=== PATIENT | female | born 1965 | race Caucasian/White ===

== ENCOUNTER 2016-11-23 19:46 | Inpatient (IN) | payer MEDICAID ==
[2016-11-23] MEDS ORDERED: HALOPERIDOL LACT 5 MG/ML INJ IVP ONE ×3 (19:55→21:13)
[2016-11-23] MEDS ORDERED: NS 1,000 ML IV ONE ×2 (20:04→20:23)
[2016-11-23] MEDS ORDERED: FAMOTIDINE 20 MG in NS 100 ML IV ONE (20:06)
[2016-11-23 20:10] LABS: % IMMATURE GRANULYOCYTES 0.6 % (0.0-1.1); ADD DIFF? NO; ADD MORPH? NO; ADD SCAN? YES; ATYPICAL LYMPHOCYTE FLAG 10 (0-99); FRAGMENT RBC FLAG 0 (0-99); HEMATOCRIT 43.6 % (38.0-47.0); HEMOGLOBIN 14.4 g/dL (12.6-16.3); LEFT SHIFT FLG 0 (0-99); LIPEMIA HEMOLYSIS FLAG 80 (0-99); MEAN CELL HEMOGLOBIN 28.5 pg (27.9-34.1); MEAN CELL VOLUME 86.3 fL (81.5-99.8); MEAN PLATELET VOLUME 10.9 fL (8.7-11.7); PLATELET CLUMPS FLAG 0 (0-99); PLATELET COUNT 569 10^3/uL (150-400); RED BLOOD CELL COUNT 5.05 10^6/uL (4.18-5.33); RED CELL DISTRIBUTION WIDTH 15.8 % (11.5-15.2)
[2016-11-23 20:17] LABS: ALANINE AMINOTRANSFERASE 30 IU/L (9-52); ALBUMIN 4.7 g/dL (3.5-5.0); ALKALINE PHOSPHATASE 198 IU/L (38-126); ANION GAP 26 mEq/L (8-16); ASPARTATE AMINOTRANSFERASE 40 IU/L (14-46); BILIRUBIN,TOTAL 0.7 mg/dL (0.1-1.4); BILIRUBIN-CONJUGATED 0.3 mg/dL (0.0-0.5); BILIRUBIN-UNCONJUGATED 0.4 mg/dL (0.0-1.1); CARBON DIOXIDE 17 mEq/l (22-31); CHLORIDE 108 mEq/L (97-110); CREATININE 0.7 mg/dL (0.6-1.0); GLOMERULAR FILTRATION RATE > 60; GLUCOSE 167 mg/dL (70-100); POTASSIUM 3.6 mEq/L (3.5-5.2); SODIUM 151 mEq/L (134-144); TOTAL PROTEIN 8.7 g/dL (6.3-8.2)
[2016-11-23 20:34] LABS: SCAN NEGATIVE
--- NOTE | 2016-11-23 20:35 | CPEKG ---
Heart Rate: 70 RR Interval: 857 P-R Interval: 101 QRSD Interval: 90 QT Interval: 456 QTC Interval: 493 P [place]: 53 QRS [place]: 82 T Wave [place]: 20 EKG Severity - BORDERLINE ECG - EKG Impression: SINUS RHYTHM EKG Impression: SHORT TX INTERVAL, ACCELERATED AV CONDUCTION EKG Impression: BORDERLINE PROLONGED QT INTERVAL Electronically Signed By: Lachelle Costello 23-Nov-2016 22:43:26
--- NOTE | 2016-11-23 21:02 | EDPHY ---
H & P Stated Complaint: abd pain and vomiting all day Time Seen by Provider: 11/23/16 20:03 HPI/ROS: CHIEF COMPLAINT: Vomiting and epigastric pain History by patient and her daughter HISTORY OF PRESENT ILLNESS: 51-year-old woman with a history of hypertension and gastritis or ulcer presents complaining of severe epigastric pain, nausea and vomiting since she ran out of her medications that include clonidine, paroxetine, Pepcid and a statin. Patient states that every time she runs out of her medications this happens to her. She denies taking any benzodiazepines or opiates. She relates it to being out of her clonidine and her Pepcid. She said that she did get her medications in the mail today however not in time and she was already having the nausea and vomiting and could not keep anything down. It is associated with some diarrhea as well. Patient also complains of having hard time breathing. She is also concerned she might have a urinary tract infection as she has been having some dysuria, urgency and frequency. Patient is a somewhat difficult historian as she will not directly answer many questions. Her daughter notes that similar event happened to her in [place] where she has been living for the past few years. She denies any alcohol use but admits to using marijuana regularly. REVIEW OF SYSTEMS: As in HPI, and all other systems reviewed and are negative Source: Patient - Personal History Tetanus Vaccine Date: WITHIN 10 YRS - Medical/Surgical History Hx Asthma: No Hx Chronic Respiratory Disease: No Hx Diabetes: No Hx Cardiac Disease: No Hx Renal Disease: No Hx Cirrhosis: No Hx Alcoholism: No Hx HIV/AIDS: No Hx Splenectomy or Spleen Trauma: No Other PMH: ARTHRITIS, Psoriasis, tubes tied,anxiety/depression,torn esophagus with laser treatment,AR, cholesterol - Family History Significant Family History: No pertinent family hx - Social History Smoking Status: Light smoker - Physical Exam Exam: General Appearance: Alert, anxious, agitated, hyperventilating. Eyes: Pupils equal and round no pallor or injection. ENT, Mouth: Mucous membranes moist. Respiratory: Normal, effort, There are no retractions, lungs are clear to auscultation. Cardiovascular: Regular rate and rhythm. Gastrointestinal: Abdomen is soft and nontender, no masses, bowel sounds normal. No rebound or guarding. Back: No CVA tenderness Neurological: Awake, alert and oriented x 3, no pronator drift, normal gait, no pronator drift Skin: Warm and dry, positive psoriasis rash. Musculoskeletal: Neck is supple nontender. Extremities: symmetrical, full range of motion. No edema, DP pulses 2+ and equal bilaterally Constitutional: Initial Vital Signs Temperature (C) 36.4 C 11/23/16 19:50 Heart Rate 77 11/23/16 19:50 Respiratory Rate 18 11/23/16 19:50 Blood Pressure 204/71 H 11/23/16 19:50 O2 Sat (%) 96 11/23/16 19:50 O2 Delivery Mode Room Air Allergies/Adverse Reactions: aspirin Allergy (Verified 11/23/16 19:54) Home Medications: Medication Instructions Recorded Omeprazole 40 mg PO DAILY #10 capsule. 09/30/14 Cholesterol Med 11/23/16 Clonidine 11/23/16 Depression Med 11/23/16 Htn Med 11/23/16 Medical Decision Making - Diagnostics EKG Interpretation: Normal sinus rhythm at a rate of 70 with normal axis and short [place] interval and borderline QT interval, no ST segment abnormality or evidence of acute ischemia. There is no old EKG available for comparison. Imaging Results: Imaging Impressions Chest X-Ray 11/23/16 20:24 Impression: No evidence of acute cardiopulmonary abnormality. Imaging: I viewed and interpreted images myself ED Course/Re-evaluation: 51-year-old woman presents with nausea, vomiting, epigastric pain and is anxious , agitated and her retching in the emergency department. Patient was given IV fluids, IV Haldol and Pepcid with some improvement although she continued to complain of abdominal pain continued to be quite agitated and retch. She was therefore given a 2nd dose IV Haldol with further improvement but she continued to complain of abdominal pain and began retching again. Labs were remarkable for very elevated white blood cell count which I suspect is due to the patient's violent retching. There is no evidence of anemia. Her sodium was high and she has an elevated anion gap suggestive of volume depletion and consistent with her history of vomiting and diarrhea. Chest x- ray showed no evidence of free air in the diaphragm, pneumonia or other acute pathology. She was given a 2nd L of IV saline and again had some improvement but continued to get agitated and retch and was given a 3rd dose of iv haldol. Before the 2nd L of normal saline was finished the patient had urinated twice suggesting that she was getting adequately rehydrated. Urinalysis was concerning for urinary tract infection. Given her extremely elevated white blood cell count and metabolic derangements lactate was checked and blood cultures x2 were obtained. Patient was started on IV ceftriaxone. Blood cultures and lactate were not done on presentation as the patient was not febrile and initially not complaining of urinary symptoms. Clinically, the patient was feeling much better, however her lactate was elevated in light of UTI suggesting sepsis. Patient has remained hemodynamically stable throughout her emergency department stay. After the 3rd dose of Haldol the patient was tolerating oral fluids and was given a GI cocktail with improvement in her abdominal pain. Blood pressure remained elevated and given the fact that the patient associates her symptoms with being off of her clonidine, once she was tolerating oral fluids she was given a dose of oral clonidine. I discussed the patient with Dr. Young, the hospitalist on-call and the patient will be transferred to [facility] for ongoing eval and treatment. - Data Points Laboratory Results: Laboratory Results 11/23/16 20:05 11/23/16 20:05 11/23/16 11/23/16 11/23/16 22:22 21:35 20:05 WBC RBC Hgb Hct MCV MCH MCHC RDW Plt Count MPV Neut % (Auto) Lymph % (Auto) [place] % (Auto) Eos % (Auto) Baso % (Auto) Nucleat RBC Rel Count Absolute Neuts (auto) Absolute Lymphs (auto) Absolute Monos (auto) Absolute Eos (auto) Absolute Basos (auto) Absolute Nucleated RBC Immature Gran % Immature Gran # Smear Review By VBG Lactic Acid 3.0 mmol/L H mmol/L (0.7-2.1) Sodium 151 mEq/L H mEq/L (134-144) Potassium 3.6 mEq/L mEq/L (3.5-5.2) Chloride 108 mEq/L mEq/L (97-110) Carbon Dioxide 17 mEq/l L mEq/l (22-31) Anion Gap 26 mEq/L H mEq/L (8-16) BUN 11 mg/dL mg/dL (7-23) Creatinine 0.7 mg/dL mg/dL (0.6-1.0) Estimated GFR > 60 Glucose 167 mg/dL H mg/dL (70-100) Calcium 10.0 mg/dL mg/dL (8.5-10.4) Magnesium Total Bilirubin 0.7 mg/dL mg/dL (0.1-1.4) Conjugated Bilirubin 0.3 mg/dL mg/dL (0.0-0.5) Unconjugated Bilirubin 0.4 mg/dL mg/dL (0.0-1.1) AST 40 IU/L IU/L (14-46) ALT 30 IU/L IU/L (9-52) Alkaline Phosphatase 198 IU/L H IU/L (38-126) Total Protein 8.7 g/dL H g/dL (6.3-8.2) Albumin 4.7 g/dL g/dL (3.5-5.0) Lipase 140.0 IU/L IU/L (23-300) Urine Color YELLOW Urine Appearance CLOUDY Urine pH 6.0 (5.0-7.5) Ur Specific [place] 1.020 (1.002-1.030) Urine Protein NEGATIVE (NEGATIVE) Urine Ketones 1+ H (NEGATIVE) Urine Blood TRACE H (NEGATIVE) Urine Nitrate POSITIVE H (NEGATIVE) Urine Bilirubin NEGATIVE (NEGATIVE) Urine Urobilinogen 0.2 EU EU (0.2-1.0) Ur Leukocyte Esterase 1+ H (NEGATIVE) Urine RBC 3-5 /hpf H /hpf (0-3) Urine WBC >182 /hpf H /hpf (0-3) Ur Epithelial Cells 1+ /lpf /lpf (NONE-1+) Urine Bacteria 4+ /hpf H /hpf (NONE SEEN) Hyaline Casts 1-3 /lpf H /lpf (0-1) Urine Mucus 1+ /lpf /lpf (NONE-1+) Urine Glucose NEGATIVE (NEGATIVE) Urine Opiates Screen NEGATIVE (NEGATIVE) Urine Barbiturates NEGATIVE (NEGATIVE) Ur Phencyclidine Scrn NEGATIVE (NEGATIVE) Ur Amphetamine Screen NEGATIVE (NEGATIVE) U Benzodiazepines Scrn NON-NEGATIVE H (NEGATIVE) Urine Cocaine Screen NEGATIVE (NEGATIVE) U Marijuana (THC) Screen NON-NEGATIVE H (NEGATIVE) 11/23/16 11/23/16 20:05 20:00 WBC 31.41 10^3/uL H 10^3/uL (3.80-9.50) RBC 5.05 10^6/uL 10^6/uL (4.18-5.33) Hgb 14.4 g/dL g/dL (12.6-16.3) Hct 43.6 % % (38.0-47.0) MCV 86.3 fL fL (81.5-99.8) MCH 28.5 pg pg (27.9-34.1) MCHC 33.0 g/dL g/dL (32.4-36.7) RDW 15.8 % H % (11.5-15.2) Plt Count 569 10^3/uL H 10^3/uL (150-400) MPV 10.9 fL fL (8.7-11.7) Neut % (Auto) 87.9 % H % (39.3-74.2) Lymph % (Auto) 7.2 % L % (15.0-45.0) [place] % (Auto) 3.9 % L % (4.5-13.0) Eos % (Auto) 0.0 % L % (0.6-7.6) Baso % (Auto) 0.4 % % (0.3-1.7) Nucleat RBC Rel Count 0.0 % % (0.0-0.2) Absolute Neuts (auto) 27.58 10^3/uL H 10^3/uL (1.70-6.50) Absolute Lymphs (auto) 2.25 10^3/uL 10^3/uL (1.00-3.00) Absolute Monos (auto) 1.23 10^3/uL H 10^3/uL (0.30-0.80) Absolute Eos (auto) 0.01 10^3/uL L 10^3/uL (0.03-0.40) Absolute Basos (auto) 0.14 10^3/uL H 10^3/uL (0.02-0.10) Absolute Nucleated RBC 0.00 10^3/uL 10^3/uL (0-0.01) Immature Gran % 0.6 % % (0.0-1.1) Immature Gran # 0.20 10^3/uL H 10^3/uL (0.00-0.10) Smear Review By Pending VBG Lactic Acid Sodium Potassium Chloride Carbon Dioxide Anion Gap BUN Creatinine Estimated GFR Glucose Calcium Magnesium 1.9 mg/dL mg/dL (1.6-2.3) Total Bilirubin Conjugated Bilirubin Unconjugated Bilirubin AST ALT Alkaline Phosphatase Total Protein Albumin Lipase Urine Color Urine Appearance Urine pH Ur Specific [place] Urine Protein Urine Ketones Urine Blood Urine Nitrate Urine Bilirubin Urine Urobilinogen Ur Leukocyte Esterase Urine RBC Urine WBC Ur Epithelial Cells Urine Bacteria Hyaline Casts Urine Mucus Urine Glucose Urine Opiates Screen Urine Barbiturates Ur Phencyclidine Scrn Ur Amphetamine Screen U Benzodiazepines Scrn Urine Cocaine Screen U Marijuana (THC) Screen Medications Given: Discontinued Medications Al Hydroxide/Mg Hydroxide (Maalox Susp) 30 ml PO EDNOW ONE Stop: 11/23/16 21:54 Last Admin: 11/23/16 22:00 Dose: 30 ml Haloperidol Lactate (Haldol Injection) 2.5 mg IVP EDNOW ONE Stop: 11/23/16 19:56 Last Admin: 11/23/16 20:00 Dose: 2.5 mg Haloperidol Lactate (Haldol Injection) 2.5 mg IVP EDNOW ONE Stop: 11/23/16 20:37 Last Admin: 11/23/16 20:40 Dose: 2.5 mg Haloperidol Lactate (Haldol Injection) 2.5 mg IVP EDNOW ONE Stop: 11/23/16 21:14 Last Admin: 11/23/16 21:14 Dose: 2.5 mg Hyoscyamine Sulfate (Levsin, Hyomax-Sl) 0.125 mg PO EDNOW ONE Stop: 11/23/16 21:51 Last Admin: 11/23/16 21:56 Dose: 0.125 mg Sodium Chloride (Ns) 1,000 mls @ 0 mls/hr IV ONCE ONE; Wide Open PRN Reason: Protocol Stop: 11/23/16 20:05 Last Admin: 11/23/16 19:56 Dose: 1,000 mls Famotidine 20 mg/ Sodium (Chloride) 102 mls @ 408 mls/hr IV EDNOW ONE Stop: 11/23/16 20:20 Last Admin: 11/23/16 20:26 Dose: 102 mls Sodium Chloride (Ns) 1,000 mls @ 0 mls/hr IV ONCE ONE; Wide Open PRN Reason: Protocol Stop: 11/23/16 20:24 Last Admin: 11/23/16 21:08 Dose: 1,000 mls Lidocaine (Lidocaine 2% Viscous) 30 ml PO EDNOW ONE Stop: 11/23/16 21:53 Last Admin: 11/23/16 22:00 Dose: 30 ml Departure - Departure Disposition: [facility] Clinical Impression: Acute pyelonephritis, Hypernatremia, Vomiting and diarrhea Sepsis Qualifiers: Sepsis type: sepsis due to unspecified organism Qualified Code(s): A41.9 - Sepsis, unspecified organism Condition: Fair Referrals: RADHA CLEMENT,. [Primary Care Provider] - As per Instructions
[2016-11-23 21:43] LABS: COLOR YELLOW; LEUKOCYTE ESTERASE,URINE 1+ (NEGATIVE); NITRITE,URINE POSITIVE (NEGATIVE)
[2016-11-23] MEDS ORDERED: HYOSCYAMINE SULFATE 0.125 MG TAB PO ONE (21:50)
[2016-11-23 21:52] LABS: WBC,URINE >182 /hpf (0-3)
[2016-11-23] MEDS ORDERED: LIDOCAINE 2% VISCOUS 15 ML UDCUP PO ONE (21:52)
[2016-11-23 21:53] LABS: BACTERIA 4+ /hpf (NONE SEEN); MUCUS 1+ /lpf (NONE-1+)
[2016-11-23] MEDS ORDERED: MAG HYDROX/AL HYDROX/SIMETH 30 ML UDCUP PO ONE (21:53)
[2016-11-24] MEDS ORDERED: IOPAMIDOL (ISOVUE-300) 100 ML BTL ONE (01:16)
--- NOTE | 2016-11-24 01:19 | PDGENHP ---
History and Physical - Chief Complaint nausea, vomiting - History of Present Illness Patient is a 51 year old female with hypertension, hyperlipidemia, psoriasis, depression who [place] [facility] with complaint of abdominal pain, nausea and vomiting. Patient states her symptoms started about 3 days ago, with lower/ suprapubic, crampy abdominal pain. The following day, pain became associated with nausea and vomiting, at least 3 episodes/day, nonbilious/nonbloody and 1-2 episodes of diarrhea. Symptoms continued through today, with continued nausea, vomiting and diarrhea, as well as subjective fever and chills, so she went to [place] [facility] [place]. Patient does report that she ran out of all her home meds (including clonidine, pepcid, paroxetine) 3 days ago and was concerned that some of her symptoms may be related to missed meds. She denies any dysuria, but does report urinary frequency. Denies CVA tenderness or obvious hematuria. On arrival [place] [facility], patient was afebrile, significantly hypertensive, saturating well on room air. She had significant nausea, vomiting for which she was given several rounds of haldol/benadryl. Labs revealed a significant leukocytosis, evidence of dehydration with hypernatremia, as well as elevated lactic acid. UA was also found to be grossly positive, so she was cultured and initiated on IVF bolus and IV antibiotics. She was then transferred to [facility] for admission. History Information - Allergies/Home Medication List Allergies/Adverse Reactions: aspirin Allergy (Verified 11/23/16 19:54) Home Medications: Cholesterol Med 11/23/16 [Last Taken Unknown] Clonidine 11/23/16 [Last Taken Unknown] Depression Med 11/23/16 [Last Taken Unknown] Htn Med 11/23/16 [Last Taken Unknown] I have personally reviewed and updated: family history, medical history, social history, surgical history - Past Medical History Additional medical history: Hypertension. Hyperlipidemia. Depression. Psoriasis. GERD/PUD - Surgical History Additional surgical history: h/o of esophageal rupture (?) repair - Family History Positive for: non-pertinent - Social History Smoking Status: Light smoker (3 cig/day) Alcohol Use: None Drug Use: Marijuana Additional social history: Patient does not work, lives with daughter. Review of Systems ROS: 10pt was reviewed & negative except for what was stated in HPI & below Physical Exam Temp Pulse Resp BP Pulse Ox 36.9 C 82 18 200/98 H 97 11/24/16 00:54 11/24/16 00:54 11/24/16 00:54 11/24/16 00:54 11/24/16 00:54 Constitutional: no apparent distress, appears nourished, not in pain Eyes: PERRL, anicteric sclera, EOMI Ears, Nose, Mouth, Throat: moist mucous membranes, hearing normal, ears appear normal, no oral mucosal ulcers Cardiovascular: regular rate and rhythym, no murmur, rub, or gallop, pulses symmetric bilaterally, No JVD, No edema Peripheral Pulses: 2+: dorsalis-pedis (R), dorsalis-pedis (L) Respiratory: no respiratory distress, no rales or rhonchi, clear to auscultation Gastrointestinal: normoactive bowel sounds, tenderness, other (suprapubic and lower quadrant tenderness to palpation), No guarding, No rebound Genitourinary: no bladder fullness, no bladder tenderness Skin: warm, normal color, no fluctuance, no induration, other (diffuse psoriatic lesions ), No mottled Musculoskeletal: full muscle strength, no muscle tenderness, normal joint ROM, no joint effusions Neurologic: AAOx3, sensation intact bilaterally, CN II-XII Intact, No weakness, No numbness, No facial droop Psychiatric: not anxious, not encephalopathic, thought process linear, other ( tangiential, lethargic, but responds appropriately when pressed) Lab Data & Imaging Review 11/23/16 20:05 11/24/16 01:10 WBC 31.41 10^3/uL (3.80-9.50) H 11/23/16 20:05 RBC 5.05 10^6/uL (4.18-5.33) 11/23/16 20:05 Hgb 14.4 g/dL (12.6-16.3) 11/23/16 20:05 Hct 43.6 % (38.0-47.0) 11/23/16 20:05 MCV 86.3 fL (81.5-99.8) 11/23/16 20:05 MCH 28.5 pg (27.9-34.1) 11/23/16 20:05 MCHC 33.0 g/dL (32.4-36.7) 11/23/16 20:05 RDW 15.8 % (11.5-15.2) H 11/23/16 20:05 Plt Count 569 10^3/uL (150-400) H 11/23/16 20:05 MPV 10.9 fL (8.7-11.7) 11/23/16 20:05 Neut % (Auto) 87.9 % (39.3-74.2) H 11/23/16 20:05 Lymph % (Auto) 7.2 % (15.0-45.0) L 11/23/16 20:05 [place] % (Auto) 3.9 % (4.5-13.0) L 11/23/16 20:05 Eos % (Auto) 0.0 % (0.6-7.6) L 11/23/16 20:05 Baso % (Auto) 0.4 % (0.3-1.7) 11/23/16 20:05 Nucleat RBC Rel Count 0.0 % (0.0-0.2) 11/23/16 20:05 Absolute Neuts (auto) 27.58 10^3/uL (1.70-6.50) H 11/23/16 20:05 Absolute Lymphs (auto) 2.25 10^3/uL (1.00-3.00) 11/23/16 20:05 Absolute Monos (auto) 1.23 10^3/uL (0.30-0.80) H 11/23/16 20:05 Absolute Eos (auto) 0.01 10^3/uL (0.03-0.40) L 11/23/16 20:05 Absolute Basos (auto) 0.14 10^3/uL (0.02-0.10) H 11/23/16 20:05 Absolute Nucleated RBC 0.00 10^3/uL (0-0.01) 11/23/16 20:05 Immature Gran % 0.6 % (0.0-1.1) 11/23/16 20:05 Immature Gran # 0.20 10^3/uL (0.00-0.10) H 11/23/16 20:05 VBG Lactic Acid 3.0 mmol/L (0.7-2.1) H 11/23/16 22:22 Sodium 151 mEq/L (134-144) H 11/23/16 20:05 Potassium 3.6 mEq/L (3.5-5.2) 11/23/16 20:05 Chloride 108 mEq/L (97-110) 11/23/16 20:05 Carbon Dioxide 17 mEq/l (22-31) L 11/23/16 20:05 Anion Gap 26 mEq/L (8-16) H 11/23/16 20:05 BUN 11 mg/dL (7-23) 11/23/16 20:05 Creatinine 0.7 mg/dL (0.6-1.0) 11/23/16 20:05 Estimated GFR > 60 11/23/16 20:05 Glucose 167 mg/dL (70-100) H 11/23/16 20:05 Calcium 10.0 mg/dL (8.5-10.4) 11/23/16 20:05 Magnesium 1.9 mg/dL (1.6-2.3) 11/23/16 20:00 Total Bilirubin 0.7 mg/dL (0.1-1.4) 11/23/16 20:05 Conjugated Bilirubin 0.3 mg/dL (0.0-0.5) 11/23/16 20:05 Unconjugated Bilirubin 0.4 mg/dL (0.0-1.1) 11/23/16 20:05 AST 40 IU/L (14-46) 11/23/16 20:05 ALT 30 IU/L (9-52) 11/23/16 20:05 Alkaline Phosphatase 198 IU/L (38-126) H 11/23/16 20:05 Total Protein 8.7 g/dL (6.3-8.2) H 11/23/16 20:05 Albumin 4.7 g/dL (3.5-5.0) 11/23/16 20:05 Lipase 140.0 IU/L (23-300) 11/23/16 20:05 Urine Color YELLOW 11/23/16 21:35 Urine Appearance CLOUDY 11/23/16 21:35 Urine pH 6.0 (5.0-7.5) 11/23/16 21:35 Ur Specific [place] 1.020 (1.002-1.030) 11/23/16 21:35 Urine Protein NEGATIVE (NEGATIVE) 11/23/16 21:35 Urine Ketones 1+ (NEGATIVE) H 11/23/16 21:35 Urine Blood TRACE (NEGATIVE) H 11/23/16 21:35 Urine Nitrate POSITIVE (NEGATIVE) H 11/23/16 21:35 Urine Bilirubin NEGATIVE (NEGATIVE) 11/23/16 21:35 Urine Urobilinogen 0.2 EU (0.2-1.0) 11/23/16 21:35 Ur Leukocyte Esterase 1+ (NEGATIVE) H 11/23/16 21:35 Urine RBC 3-5 /hpf (0-3) H 11/23/16 21:35 Urine WBC >182 /hpf (0-3) H 11/23/16 21:35 Ur Epithelial Cells 1+ /lpf (NONE-1+) 11/23/16 21:35 Urine Bacteria 4+ /hpf (NONE SEEN) H 11/23/16 21:35 Hyaline Casts 1-3 /lpf (0-1) H 11/23/16 21:35 Urine Mucus 1+ /lpf (NONE-1+) 11/23/16 21:35 Urine Glucose NEGATIVE (NEGATIVE) 11/23/16 21:35 Urine Opiates Screen NEGATIVE (NEGATIVE) 11/23/16 21:35 Urine Barbiturates NEGATIVE (NEGATIVE) 11/23/16 21:35 Ur Phencyclidine Scrn NEGATIVE (NEGATIVE) 11/23/16 21:35 Ur Amphetamine Screen NEGATIVE (NEGATIVE) 11/23/16 21:35 U Benzodiazepines Scrn NON-NEGATIVE (NEGATIVE) H 11/23/16 21:35 Urine Cocaine Screen NEGATIVE (NEGATIVE) 11/23/16 21:35 U Marijuana (THC) Screen NON-NEGATIVE (NEGATIVE) H 11/23/16 21:35 Visualized and Interpreted Chest x-ray results: Yes Chest X-Ray results: no infiltrate, normal Visualized and Interpreted EKG results: Yes EKG Interpretation: Positive for: normal sinsus rhythm Assessment & Plan Assessment: Patient is a 51 year old female with HTN, HLD, GERD/PUD, depression who presented [place] [facility] with complaint of 2 days of nausea, vomiting and abdominal pain. ED work up was consistent with sepsis, presumed to be due to positive UTI/pyelonephritis. Plan: # sepsis Patient with significant leukocytosis and HR > 90, meeting SIRS criteria. Source of infection has been identified as UTI. Elevated lactic acid is consistent with severe sepsis. Patient has received the appropriate IV fluid bolus and has been initiated on antibiotics. - f/u blood and urine cultures - cont ceftriaxone - cont IVF hydration with NS - monitor CBC, lactic acid # nausea, vomiting Suspect related to acute cystitis and severe sepsis. CT abd/pelvis has ruled out appendicitis or significant bowel pathology. Will treat infection as above, provide anti-emetics prn. # hypertension Patient with chronic hypertension, apparently managed with clonidine. Patient ran out of this med about 2 days prior to presentation, so acutely elevated BP likely related to clonidine withdrawal, as well as acute pain described above. - resume clonidine dosing, once confirmed - hydralazine prn - pain control prn # hypernatremia, anion gap acidosis Suspect this is related to acute dehydration due to lack of po intake, nausea and vomiting over past 2 days. Free water deficit calculated at 2.2L. Will continue IV fluid hydration and monitor BMP, urine output. # HLD/GERD/PUD Resume home meds once confirmed. # dispo: admit to observation status # gen: cardiac diet DVT ppx: low risk given Obs status, if hospitalized > 24 hours, initiated lovenox Full code
--- NOTE | 2016-11-24 02:02 | CPEKG ---
Heart Rate: 101 RR Interval: 594 P-R Interval: 113 QRSD Interval: 102 QT Interval: 396 QTC Interval: 514 P [place]: 0 QRS [place]: 83 T Wave [place]: 44 EKG Severity - ABNORMAL ECG - EKG Impression: SINUS TACHYCARDIA EKG Impression: PROLONGED QT INTERVAL Electronically Signed By: Kelby Ponce 25-Nov-2016 09:04:31
[2016-11-24] MEDS: hydrALAZINE 20 MG/ML VIAL IVP PRN (03:11)
[2016-11-24 05:18] LABS: % IMMATURE GRANULYOCYTES 0.5 % (0.0-1.1); ABSOLUTE IMMATURE GRANULOCYTES 0.11 10^3/uL (0.00-0.10); ADD DIFF? NO; ADD MORPH? NO; ADD SCAN? NO; ATYPICAL LYMPHOCYTE FLAG 10 (0-99); FRAGMENT RBC FLAG 0 (0-99); HEMATOCRIT 40.6 % (38.0-47.0); HEMOGLOBIN 13.5 g/dL (12.6-16.3); LEFT SHIFT FLG 0 (0-99); LIPEMIA HEMOLYSIS FLAG 80 (0-99); MEAN CELL HEMOGLOBIN 28.7 pg (27.9-34.1); MEAN CELL HEMOGLOBIN CONCENTR. 33.3 g/dL (32.4-36.7); MEAN CELL VOLUME 86.2 fL (81.5-99.8); MEAN PLATELET VOLUME 10.9 fL (8.7-11.7); PLATELET CLUMPS FLAG 0 (0-99); PLATELET COUNT 424 10^3/uL (150-400); RED BLOOD CELL COUNT 4.71 10^6/uL (4.18-5.33); RED CELL DISTRIBUTION WIDTH 15.6 % (11.5-15.2)
[2016-11-24 05:31] LABS: ANION GAP 15 mEq/L (8-16); CALCIUM 9.9 mg/dL (8.5-10.4); CARBON DIOXIDE 16 mEq/l (22-31); CHLORIDE 112 mEq/L (97-110); CREATININE 0.7 mg/dL (0.6-1.0); GLOMERULAR FILTRATION RATE > 60; GLUCOSE 156 mg/dL (70-100); MAGNESIUM 1.7 mg/dL (1.6-2.3); POTASSIUM 3.9 mEq/L (3.5-5.2); SODIUM 143 mEq/L (134-144)
[2016-11-24 05:46] LABS: APTT 28.6 SEC (23.0-38.0); INR 1.02 (0.83-1.16); PROTIME(PATIENT) 13.3 SEC (12.0-15.0)
[2016-11-24] MEDS ORDERED: KETOROLAC 15 MG/1 ML SDV IVP SCH (06:00)
[2016-11-24] MEDS ORDERED: PROTOCOL POTASSIUM 1 DOSE MISC PRN (07:35)
[2016-11-24] MEDS ORDERED: PROTOCOL MAGNESIUM 1 DOSE IV PRN (07:35)
--- NOTE | 2016-11-24 08:08 | HOSPPROG ---
Hospitalist Progress Note Assessment/Plan: Ms Singh is a 51 y/o who presented to the ER with c/o nausea, vomiting, and abdominal pain. I came by to f/u with her. She was admitted earlier today by Dr Young. # sepsis elevated wbc, lactate improved source is likely urine awaiting blood cx and urine cx Ceftriaxone initiated #UTI awaiting cx # Nausea and vomiting due to the above but could also be r/t GERD symptoms when I evaluated her, pain was mainly epigastric # hypernatremia improved with hydration #anion gap acidosis due to nausea and vomiting should improve w hydration #GERD: awaiting meds to be reconciled will add Maalox PPI bid stop Toradol #DVT prophylaxis: SCD's, ambualtion Subjective: Blank is c/o epigastric pain that feels like her symptoms of GERD. Objective: Vital Signs Temp Pulse Resp BP Pulse Ox 37.0 C 103 H 16 143/90 H 97 11/24/16 04:00 11/24/16 04:00 11/24/16 04:00 11/24/16 04:00 11/24/16 04:00 Laboratory Results 11/24/16 04:25 11/24/16 04:25 11/23/16 11/24/16 11/25/16 05:59 05:59 05:59 Intake Total 2100 Output Total 700 Balance 1400 PT 13.3 SEC (12.0-15.0) 11/24/16 04:25 INR 1.02 (0.83-1.16) 11/24/16 04:25 - Physical Exam Constitutional: uncomfortable, No not in pain Eyes: PERRL Ears, Nose, Mouth, Throat: hearing normal Respiratory: no respiratory distress Skin: warm Musculoskeletal: full muscle strength Neurologic: AAOx3 Psychiatric: interacting appropriately ICD10 Worksheet Patient Problems: Problems Problem Status Onset Acute pyelonephritis Acute Hypernatremia Acute Sepsis Acute Vomiting and diarrhea Acute
[2016-11-24] MEDS: HYDROCODONE/APAP 5/325 TAB PO PRN ×2 (08:29→21:55)
[2016-11-24] MEDS ORDERED: POTASSIUM CL 10 MEQ TAB PO ONE (09:00)
[2016-11-24] MEDS: PANTOPRAZOLE SODIUM 40 MG TAB PO SCH ×2 (09:56→21:03)
--- NOTE | 2016-11-24 10:29 | CPEKG ---
Heart Rate: 114 RR Interval: 526 P-R Interval: 99 QRSD Interval: 90 QT Interval: 328 QTC Interval: 452 P [place]: 0 QRS [place]: 80 T Wave [place]: 40 EKG Severity - BORDERLINE ECG - EKG Impression: SINUS TACHYCARDIA Electronically Signed By: Kelby Ponce 25-Nov-2016 09:04:16
[2016-11-24] MEDS ORDERED: LABETALOL HCL 50 MG/10 ML SYR IVP ONE (11:17)
[2016-11-24] MEDS ORDERED: NON-FORMULARY NEW DRUG (Paroxetine Hcl [Paxil] 40 MG) PO SCH (11:45)
[2016-11-24 11:58] LABS: TROPONIN I 0.843 ng/mL (0-0.034)
[2016-11-24 12:02] LABS: CK-MB INTERPRETATION POSITIVE (NEGATIVE)
--- NOTE | 2016-11-24 13:35 | SOAPPROG ---
SOAP Progress Note Assessment/Plan: Assessment: Cardiology consultations performed and dictated. 51 y/o woman HTN x 5yrs, reportedly non-specific NH in [place] a year ago but no cath, stress test or echo ever done, heavy ETOH use until 10 days ago and reportedly esophageal perforation 2004 admitted yesterday with abdominal pain and elevated WBC. Cardiac troponin checked and mildly elevated at 0.84 and ECG with sinus tachycardia with non-specific ST depression laterally. BP 183/ 109. IMP: 1)uncontrolled HTN. 2)borderline cardiac troponin. Clinically I do not think she is having unstable angina. Question GI source or pancreatitis. 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 Lots of room to control BP and add anti-anginal.s REC: 1)Metoprolol tartrate 25mg PO TID. 2)Amlodipine 5mg PO qday. 3)serial cardiac isoenzymes q6hrs x 2. 4)echo Friday AM 5)probably lexiscan cardiolite Friday once BP under control as long as no severe LV dysfunction. 6)check fasting lipids in AM and amylase and lipase. will follow with you. Thanks. 11/24/16 13:30 Objective: Vital Signs Temp Pulse Resp BP Pulse Ox 36.8 C 111 H 21 H 183/109 H 96 11/24/16 11:11 11/24/16 11:11 11/24/16 11:11 11/24/16 11:11 11/24/16 11:11 Laboratory Results 11/24/16 04:25 11/24/16 04:25 11/23/16 11/24/16 11/25/16 05:59 05:59 05:59 Intake Total 2100 Output Total 700 Balance 1400 PT 13.3 SEC (12.0-15.0) 11/24/16 04:25 INR 1.02 (0.83-1.16) 11/24/16 04:25 ICD10 Worksheet Patient Problems: Problems Problem Status Onset Acute pyelonephritis Acute Hypernatremia Acute Sepsis Acute Vomiting and diarrhea Acute
[2016-11-24] MEDS: METOPROLOL TARTRATE 25 MG TAB PO SCH ×3 (13:52→21:03)
[2016-11-24] MEDS: ATORVASTATIN CALCIUM 40 MG TAB PO SCH (13:53)
[2016-11-24] MEDS: amLODIPine BESYLATE 5 MG TAB PO SCH (13:53)
[2016-11-24] MEDS: PARoxetine HCL 10 MG TAB PO SCH (13:53)
--- NOTE | 2016-11-24 14:26 | GCON ---
[f rep st] CONSULTATION CARDIOLOGY CONSULTATION DATE OF CONSULTATION: 11/24/2016 REFERRING PHYSICIAN: Rachana Parish NP REASON FOR CONSULTATION: Evaluate woman with uncontrolled hypertension, epigastric pain, and border line cardiac troponin. HISTORY OF PRESENT ILLNESS: I was asked by Rachana Parish NP, to consult for the above reasons. The patient is a 51-year-old woman with hypertension x5 years, previous heavy alcohol use until 10 d ays ago, and reportedly a heart attack in [place], [place] a year ago. On questioning her ab out the heart attack, she did not have a heart catheterization or stent, or stress test or echo. Edna hopkins currently lives in [place], [place]. She was admitted yesterday to the Hospitalist Service wit h abdominal pain and elevated white count. Her blood pressure currently is 183/109. She denies juliana st pain, shortness of breath, or headache. On EKG, she has some mild new ST depression. PAST MEDICAL HISTORY: Hypertension x5 years, hyperlipidemia, psoriasis, depression, previous heavy alcohol use, and previous esophageal tear in 2004. PAST SURGICAL HISTORY: Repair of esophageal tear in 2004. CURRENT MEDICATIONS: Atorvastatin 40 mg per day, ceftriaxone 1 g IV daily, clonidine 0.1 mg p.o. t. i.d., Protonix, and Paxil. ALLERGIES: Aspirin. SOCIAL HISTORY: The patient smokes. She had heavy alcohol use until 1 week ago. FAMILY HISTORY: Positive for premature coronary artery disease. REVIEW OF SYSTEMS: The patient reports no TIA or CVA symptoms. She has no GI bleed symptoms such a s hematemesis, melena, or bright red blood per rectum. The rest of a 10-point review of systems is negative. PHYSICAL EXAM: VITAL SIGNS: Afebrile, pulse 111 and sinus tachycardia, blood pressure 183/109, res pirations 20, weight 65.3 kg. GENERAL: A normal-appearing woman in no acute distress without chest pain or using accessory respiratory muscles. EYES: Pupils equal and reactive to light. ENT: Ora l mucosa with no cyanosis. NECK: Jugular venous pressure to 7 cm. Carotid pulse 2+ bilaterally wi th no obvious bruits. No thyromegaly noted. LUNGS: Clear to auscultation bilaterally without rale s, rhonchi, or wheezing. HEART: Normal PMI, tachycardic, regular rate, positive S4, but no S3 or m urmurs. ABDOMEN: Soft and nontender. No guarding or rebound. No ascites. EXTREMITIES: 2+ perip heral pulses including femoral and pedal pulses. No edema noted. MUSCULOSKELETAL: No scoliosis. NEURO: Normal affect and mood. Neck: No nuchal rigidity. SKIN: No bleeding or cyanosis. STUDIES: EKG: Sinus tachycardia at 114 beats per minute with nonspecific upsloping ST depression i n the lateral leads. LABS: White count 22.8, hematocrit 41, platelets 424,000, MCV 86. INR 1.02. Sodium 143, potassium 3.9, chloride 112, bicarb 16, BUN 7, creatinine 0.7, glucose 156. CPK 119, troponin 0.84. IMPRESSION: A 51-year-old woman with hypertension and abdominal pain and previous heavy alcohol int ginny. I am suspect about her diagnosis of myocardial infarction, especially with no catheterization or stress test. I wonder if it was a hypertensive emergency. Currently, I do not think she is havi ng unstable angina or a myocardial infarction. Her blood pressure is not controlled. I wonder if s he has alcoholic pancreatitis. RECOMMENDATIONS: 1. Will start on metoprolol tartrate 25 mg p.o. q.8 hours. 2. Will start on amlodipine 5 mg per day. 3. Agree with getting serial cardiac enzymes x2 more sets today. 4. Agree with transferring to Cardiac telemetry unit for closer blood pressure monitoring. 5. Will do an echocardiogram in the morning to evaluate LV function. 6. Unless she has significant LV dysfunction on echo, or has a significant troponin leak, would pro bably risk stratify her with a Lexiscan Cardiolite stress test several days later during this hospit alization. 7. Would check a fasting lipid panel during the hospitalization, and repeat her serum amylase and l ipase. /[id number]/MODL
[2016-11-24] MEDS ORDERED: MAGNESIUM SULF 1 GM/DEXTROSE 100 ML IV ONE (15:10)
[2016-11-24] MEDS: NS 1,000 ML IV SCH (15:44)
[2016-11-24] MEDS: ONDANSETRON DISINTEGRATING 4 MG TAB PO PRN (15:46)
[2016-11-24] MEDS: ACETAMINOPHEN 500 MG TAB PO PRN (15:49)
[2016-11-24] MEDS: MAG HYDROX/AL HYDROX/SIMETH 30 ML UDCUP PO PRN (17:44)
[2016-11-24 18:22] LABS: POTASSIUM 3.9 mEq/L (3.5-5.2)
[2016-11-24 18:38] LABS: TROPONIN I 0.854 ng/mL (0-0.034)
[2016-11-24] MEDS: ONDANSETRON 4 MG/2 ML VIAL IVP PRN (21:53)
[2016-11-25] MEDS ORDERED: POTASSIUM CL 10 MEQ TAB PO ONE (01:14)
[2016-11-25] MEDS: NS 1,000 ML IV SCH ×3 (02:18→19:13)
[2016-11-25] MEDS: ONDANSETRON 4 MG/2 ML VIAL IVP PRN (02:23)
[2016-11-25 04:50] LABS: % IMMATURE GRANULYOCYTES 0.5 % (0.0-1.1); ABSOLUTE IMMATURE GRANULOCYTES 0.11 10^3/uL (0.00-0.10); ADD DIFF? NO; ADD MORPH? NO; ADD SCAN? NO; ATYPICAL LYMPHOCYTE FLAG 20 (0-99); FRAGMENT RBC FLAG 0 (0-99); HEMATOCRIT 42.3 % (38.0-47.0); HEMOGLOBIN 13.6 g/dL (12.6-16.3); LEFT SHIFT FLG 0 (0-99); LIPEMIA HEMOLYSIS FLAG 80 (0-99); MEAN CELL HEMOGLOBIN 28.6 pg (27.9-34.1); MEAN CELL HEMOGLOBIN CONCENTR. 32.2 g/dL (32.4-36.7); MEAN CELL VOLUME 89.1 fL (81.5-99.8); MEAN PLATELET VOLUME 10.6 fL (8.7-11.7); PLATELET CLUMPS FLAG 0 (0-99); PLATELET COUNT 468 10^3/uL (150-400); RED BLOOD CELL COUNT 4.75 10^6/uL (4.18-5.33)
[2016-11-25 05:05] LABS: ALANINE AMINOTRANSFERASE 34 IU/L (9-52); ALBUMIN 3.9 g/dL (3.5-5.0); ALKALINE PHOSPHATASE 135 IU/L (38-126); AMYLASE 96 IU/L (30-110); ANION GAP 11 mEq/L (8-16); ASPARTATE AMINOTRANSFERASE 37 IU/L (14-46); BILIRUBIN,TOTAL 0.9 mg/dL (0.1-1.4); CALCIUM 9.6 mg/dL (8.5-10.4); CARBON DIOXIDE 20 mEq/l (22-31); CHLORIDE 110 mEq/L (97-110); CHOLESTEROL 128 mg/dL (140-220); CHOLESTEROL/HDL RATIO 2.17 RATIO (1.00-4.44); CREATININE 0.7 mg/dL (0.6-1.0); GLOMERULAR FILTRATION RATE > 60; GLUCOSE 123 mg/dL (70-100); HIGH DENSITY LIPOPROTEIN 59 mg/dL (40-85); LOW DENSITY LIPOPROTEIN 47 mg/dL (80-100); MAGNESIUM 2.4 mg/dL (1.6-2.3); NON-HIGH DENSITY LIPOPROTEIN 69 mg/dL (90-129); POTASSIUM 4.3 mEq/L (3.5-5.2); SODIUM 141 mEq/L (134-144); TOTAL PROTEIN 7.4 g/dL (6.3-8.2); TRIGLYCERIDE 114 mg/dL (35-135); VERY LOW DENSITY LIPOPROTEINS 22 mg/dL (8-25)
[2016-11-25] MEDS: MAG HYDROX/AL HYDROX/SIMETH 30 ML UDCUP PO PRN ×2 (05:27→18:25)
--- NOTE | 2016-11-25 08:44 | CPEKG ---
Heart Rate: 71 RR Interval: 845 P-R Interval: 117 QRSD Interval: 90 QT Interval: 468 QTC Interval: 509 P [place]: 0 QRS [place]: 93 T Wave [place]: 44 EKG Severity - BORDERLINE ECG - EKG Impression: SINUS RHYTHM Electronically Signed By: Kelby Ponce 25-Nov-2016 09:03:51
[2016-11-25] MEDS: PARoxetine HCL 20 MG TAB PO SCH (08:52)
[2016-11-25] MEDS: amLODIPine BESYLATE 5 MG TAB PO SCH (08:52)
[2016-11-25] MEDS: METOPROLOL TARTRATE 25 MG TAB PO SCH ×3 (08:52→21:10)
[2016-11-25] MEDS: PARoxetine HCL 10 MG TAB PO SCH (08:52)
[2016-11-25] MEDS: ATORVASTATIN CALCIUM 40 MG TAB PO SCH (08:53)
[2016-11-25] MEDS: ONDANSETRON DISINTEGRATING 4 MG TAB PO PRN ×2 (08:53→15:13)
[2016-11-25] MEDS: ACETAMINOPHEN 500 MG TAB PO PRN ×2 (08:53→15:31)
[2016-11-25] MEDS: PANTOPRAZOLE SODIUM 40 MG TAB PO SCH ×2 (08:54→14:43)
[2016-11-25] MEDS ORDERED: NON-FORMULARY NEW DRUG (Omeprazole [Omeprazole] 40 MG) PO SCH (09:00)
[2016-11-25] MEDS ORDERED: PNEUMOCOCCAL 0.5ML VACCINE VIAL IM ONE (09:53)
[2016-11-25] MEDS: hydrALAZINE 20 MG/ML VIAL IVP PRN (10:31)
--- NOTE | 2016-11-25 10:47 | ECHO ---
[id number] + + [id number] : : Mih[place] [id number] : : [phone] + + Adult Echocardiographic Report + -----+ :Name: KIM CUEVAS LStudy Date: 11/25/2016 08:44 AM BP: 180/104 mmHg : : Hospital Admission Number: [id number] Location : 216: :: 1965 Gender: Female Height: 60 in : :Age: 51 yrs Race: WH Weight: 143 lb : :Reason For Study: htn, elev trop : : BSA: 1.6 meters2 : :History: htn, elev troponin : + -----+ MMode/2D Measurements \T\ Calculations IVSd: 0.97 cm RVDd: 2.4 cm FS: 35.4 % Ao root diam: LVPWd: 0.91 cm LVIDd: 3.9 cm EDV(Teich): 2.0 cm LVIDs: 2.5 cm 67.2 ml ESV(Teich): 23.2 ml EF(Teich): 65.5 % LVLd ap4: 7.5 cm SV(MOD-sp4): EDV(MOD-sp4): 54.0 ml 91.0 ml LVLs ap4: 6.5 cm ESV(MOD-sp4): 37.0 ml EF(MOD-sp4): 59.3 % Normal Measurement Values: + + :LVIDd (3.5-5.7cm) IVSd (0.6-1.1cm) LVPWd (0.6-1.1cm) Aortic Root (2.0-3.7cm)Left Atrium (1.5-4.0cm): :LV Vol(d) (76-115ml) LV Vol(s) (29-48ml) Ejec Fraction (50-65%)PV N[place]um (0.6- 1.2m/s) TV Nahum (0.4-1.0m/s) : :MV E [place] (0.8-1.0m/s)MV A [place] (0.3-1.0m/s)LVOT N[place]um (0.7-1.2m/s) Asc Ao Nahum ( 0.9-1.8m/s) : + + Doppler Measurements \T\ Calculations MV E max nahum: MV V2 max: MV P1/2t max nahum: Ao V2 max: 115.9 cm/sec 191.1 cm/sec 144.4 cm/sec 174.5 cm/sec MV A max nahum: MV max PG: MV P1/2t: 111.1 msec Ao max P.8 cm/sec 14.6 mmHg MVA(P1/2t): 2.0 cm2 12.2 mmHg MV E/A: 0.66 MV V2 mean: MV dec slope: MV dec time: 116.3 cm/sec 0.33 sec MV mean P.9 cm/sec2 6.1 mmHg MV V2 VTI: 50.4 cm LV V1 max: PA V2 max: RAP systole: 5.0 mmHg 139.9 cm/sec 128.1 cm/sec LV V1 max PG: PA max P.8 mmHg 6.6 mmHg Left Ventricle The left ventricle is normal in size and function. There is borderline concentric left ventricular hypertrophy. Ejection Fraction = 55-60%. Small area of basal inferior wall hypokinesis and thinning consistent with old [place]. Right Ventricle The right ventricle is normal in size and function. Atria The left atrial size is normal. Right atrial size is normal. Mitral Valve Abnormal appearing mitral valve; mild diastolic doming and thickened leaflets. There is mild mitral stenosis. There is mild mitral regurgitation. Tricuspid Valve The tricuspid valve is normal in structure and function. There is no tricuspid stenosis. No tricuspid regurgitation. Aortic Valve The aortic valve is trileaflet. Mildly sclerotic aortic leaflets. There is no aortic stenosis. Mild aortic regurgitation. Pulmonic Valve The pulmonic valve is not well visualized. There is no pulmonic valvular regurgitation. Great Vessels The aortic root is normal size. Pericardium/Pleural trivial pericardial effusion. Some areas of the pericardial sac appear bright and thickened. Conclusion A two-dimensional transthoracic echocardiogram with M-mode and Doppler was performed. The left ventricle is normal in size and function. There is borderline concentric left ventricular hypertrophy. Ejection Fraction = 55-60%. Small area of basal inferior wall hypokinesis and thinning consistent with old [place]. Abnormal appearing mitral valve; mild diastolic doming and thickened leaflets. There is mild mitral stenosis. There is mild mitral regurgitation. Mildly sclerotic aortic leaflets. Mild aortic regurgitation. trivial pericardial effusion. Some areas of the pericardial sac appear bright and thickened. Final Reading Physician: Mariano Recinos signed on 11/25/2016 10:45 AM Ordering Physician: Alan Harvey Performed By: Lena Montalvo
--- NOTE | 2016-11-25 15:41 | SOAPPROG ---
SOAP Progress Note Assessment/Plan: Assessment: 1. Coronary artery disease 2. Chest pain 3. Gastroesophageal reflux 4. History of esophageal rupture She is coming in with chest pain history positive troponins and we are going to proceed to coronary angiography tomorrow unless the patient decided she does not want. Earlier today when I spoke with her she did not want further cardiovascular cardiac evaluation right than but I think she would be willing to do it. She has no heart failure. She has an abnormal echo with regional wall motion abnormalities and 3 elevated troponins. We will watch her very carefully. He has a history of significant GI pathology. She has a history of alcohol abuse She has a history of smoking. We talked about smoking cessation carefully in all her questions have been answered. Plan: 11/25/16 15:42 Subjective: She is having right-sided chest pain. This is the pain that she has with her gastroesophageal reflux disease. She does not have any other chest pain right at this time. She has no arm pain or jaw pain She has no fevers or chills. She does have longstanding GI complaints secondary to esophageal rupture which occurred due to vomiting. She has significant history of alcohol use. No palpitations no orthopnea PND or dyspnea on exertion. Objective: Vital Signs Temp Pulse Resp BP Pulse Ox 36.6 C 70 20 118/76 96 11/25/16 15:15 11/25/16 15:14 11/25/16 15:15 11/25/16 15:14 11/25/16 15:15 Laboratory Results 11/25/16 04:30 11/25/16 04:30 11/24/16 11/25/16 11/26/16 05:59 05:59 05:59 Intake Total 2100 2210 450 Output Total 700 150 Balance 1400 2060 450 PT 13.3 SEC (12.0-15.0) 11/24/16 04:25 INR 1.02 (0.83-1.16) 11/24/16 04:25 Physical Exam - Physical Exam General Appearance: alert Neck: supple Respiratory: rhonchi, prolonged expiration Cardiac/Chest: regular rate, rhythm, systolic murmur, No edema Abdomen: non-tender, soft, No organomegaly Skin: warm/dry, No pallor Neuro/Psych: alert, oriented x 3 ICD10 Worksheet Patient Problems: Problems Problem Status Onset Acute pyelonephritis Acute Hypernatremia Acute Sepsis Acute Vomiting and diarrhea Acute
[2016-11-25] MEDS ORDERED: NITROGLYCERIN 0.4 MG BTL SL PRN (15:44)
[2016-11-25] MEDS ORDERED: ASPIRIN EC 325 MG TAB PO ONE (15:44)
[2016-11-25] MEDS ORDERED: ACETAMINOPHEN 325 MG TAB PO PRN (15:44)
--- NOTE | 2016-11-25 17:09 | HOSPPROG ---
Hospitalist Progress Note Assessment/Plan: Ms Singh is a 51 y/o who presented to the ER with c/o nausea, vomiting, and abdominal pain. I came by to f/u with her. She was admitted earlier today by Dr Young. # sepsis elevated wbc, lactate improved source is likely urine awaiting blood cx and urine cx Ceftriaxone initiated #UTI e coli continue ceftriaxone CV: cath in AM given elevated trop # Nausea and vomiting due to the above but could also be r/t GERD symptoms when I evaluated her, pain was mainly epigastric # hypernatremia improved with hydration #anion gap acidosis due to nausea and vomiting should improve w hydration #GERD: awaiting meds to be reconciled will add Maalox PPI bid stop Toradol #DVT prophylaxis: SCD's, ambualtion Subjective: case d/w dr baptiste Objective: Vital Signs Temp Pulse Resp BP Pulse Ox 36.6 C 70 20 118/76 96 11/25/16 15:15 11/25/16 15:14 11/25/16 15:15 11/25/16 15:14 11/25/16 15:15 Laboratory Results 11/25/16 04:30 11/25/16 04:30 11/24/16 11/25/16 11/26/16 05:59 05:59 05:59 Intake Total 2100 2210 450 Output Total 700 150 Balance 1400 2060 450 PT 13.3 SEC (12.0-15.0) 11/24/16 04:25 INR 1.02 (0.83-1.16) 11/24/16 04:25 - Physical Exam Constitutional: no apparent distress, appears nourished Eyes: PERRL, anicteric sclera Ears, Nose, Mouth, Throat: moist mucous membranes, hearing normal Cardiovascular: regular rate and rhythym, no murmur, rub, or gallop Respiratory: no respiratory distress, no rales or rhonchi Gastrointestinal: normoactive bowel sounds Genitourinary: no bladder fullness, No felix in urethra Skin: warm, normal color Musculoskeletal: full muscle strength, no muscle tenderness Neurologic: AAOx3 ICD10 Worksheet Patient Problems: Problems Problem Status Onset Acute pyelonephritis Acute Hypernatremia Acute Sepsis Acute Vomiting and diarrhea Acute
[2016-11-25 18:18] LABS: POTASSIUM 3.9 mEq/L (3.5-5.2)
[2016-11-25] MEDS: TEMAZEPAM 15 MG CAP PO PRN (21:07)
[2016-11-26] MEDS: NS 1,000 ML IV SCH ×3 (03:10→21:58)
[2016-11-26] MEDS: MAG HYDROX/AL HYDROX/SIMETH 30 ML UDCUP PO PRN ×2 (04:41→09:14)
[2016-11-26 05:06] LABS: INR 1.09 (0.83-1.16)
[2016-11-26 05:07] LABS: APTT 29.2 SEC (23.0-38.0)
[2016-11-26 05:11] LABS: ANION GAP 10 mEq/L (8-16); CALCIUM 8.8 mg/dL (8.5-10.4); CARBON DIOXIDE 17 mEq/l (22-31); CHLORIDE 114 mEq/L (97-110); CHOLESTEROL 100 mg/dL (140-220); CREATININE 0.7 mg/dL (0.6-1.0); GLOMERULAR FILTRATION RATE > 60; GLUCOSE 99 mg/dL (70-100); HIGH DENSITY LIPOPROTEIN 40 mg/dL (40-85); LDL/HDL RATIO 0.75 RATIO (1.00-3.22); LOW DENSITY LIPOPROTEIN 30 mg/dL (80-100); MAGNESIUM 2.2 mg/dL (1.6-2.3); NON-HIGH DENSITY LIPOPROTEIN 60 mg/dL (90-129); POTASSIUM 3.8 mEq/L (3.5-5.2); SODIUM 141 mEq/L (134-144); TRIGLYCERIDE 153 mg/dL (35-135); VERY LOW DENSITY LIPOPROTEINS 30 mg/dL (8-25)
[2016-11-26] MEDS ORDERED: DIAZEPAM 5 MG TAB PO ONE ×2 (06:00→09:54)
[2016-11-26] MEDS ORDERED: diphenhydrAMINE 25 MG CAP PO ONE ×2 (06:00→09:54)
[2016-11-26] MEDS: amLODIPine BESYLATE 5 MG TAB PO SCH (08:34)
[2016-11-26] MEDS: METOPROLOL TARTRATE 25 MG TAB PO SCH ×3 (08:34→21:37)
[2016-11-26] MEDS: PARoxetine HCL 10 MG TAB PO SCH (08:34)
[2016-11-26] MEDS: ATORVASTATIN CALCIUM 40 MG TAB PO SCH (08:34)
[2016-11-26] MEDS: PANTOPRAZOLE SODIUM 40 MG TAB PO SCH (08:34)
[2016-11-26] MEDS ORDERED: LIDOCAINE 1% 300 MG/30 ML SDV ONE ×2 (08:47→09:39)
[2016-11-26] MEDS ORDERED: MIDAZOLAM 2 MG/2 ML VIAL ONE ×3 (08:47→10:20)
[2016-11-26] MEDS ORDERED: IOPAMIDOL (ISOVUE-370) 150 ML BTL IV ONE ×2 (08:47→09:40)
[2016-11-26] MEDS ORDERED: fentaNYL 100 MCG/2 ML INJ ONE ×3 (08:47→10:20)
--- NOTE | 2016-11-26 08:48 | CPEKG ---
Heart Rate: 64 RR Interval: 938 P-R Interval: 112 QRSD Interval: 86 QT Interval: 480 QTC Interval: 496 P [place]: 64 QRS [place]: 90 T Wave [place]: 46 EKG Severity - BORDERLINE ECG - EKG Impression: SINUS RHYTHM EKG Impression: BORDERLINE RIGHT AXIS DEVIATION EKG Impression: BORDERLINE PROLONGED QT INTERVAL Electronically Signed By: Samuel Hayward 26-Nov-2016 09:02:36
[2016-11-26] MEDS: PARoxetine HCL 20 MG TAB PO SCH (09:14)
[2016-11-26] MEDS ORDERED: FAMOTIDINE 20 MG TAB PO ONE (09:54)
[2016-11-26] MEDS ORDERED: NS 1,000 ML IV ONE (09:54)
[2016-11-26] MEDS ORDERED: HYDROCODONE/APAP 5/325 TAB PO PRN (10:53)
[2016-11-26] MEDS ORDERED: OXYCODONE/APAP 5/325 TAB PO PRN (10:53)
[2016-11-26] MEDS ORDERED: ATROPINE SULFATE 1 MG/10 ML SYR IVP PRN (10:53)
[2016-11-26] MEDS ORDERED: NITROGLYCERIN 0.4 MG BTL SL PRN (10:53)
[2016-11-26] MEDS ORDERED: ONDANSETRON 4 MG/2 ML VIAL IVP PRN (10:53)
[2016-11-26] MEDS ORDERED: POTASSIUM CL 10 MEQ TAB PO ONE ×2 (12:42→20:43)
--- NOTE | 2016-11-26 13:53 | HOSPPROG ---
Hospitalist Progress Note Assessment/Plan: Ms Singh is a 51 y/o who presented to the ER with c/o nausea, vomiting, and abdominal pain. I came by to f/u with her. She was admitted earlier today by Dr Young. sepsis elevated wbc, lactate improved source is likely urine blood cx neg; ucx w ceftiaxone sens e coli UTI e coli continue ceftriaxone; day 4/7 CV: elevated trop w focal wma and now clean coronaries notes hospitalization last year for "slight heart attack" had PICC associated dvt at that time check CT PE today as potential cause of elevated troponin Nausea and vomiting resolved contrast load: continue IVF today and overnight following cardiac cath and ct angio today hypernatremia resolved with hydration anion gap acidosis resolved GERD: awaiting meds to be reconciled will add Maalox PPI bid stop Toradol DVT prophylaxis: high risk; start LMWH h/o VTE Subjective: case d/w dr baptiste. this AM ekg w no R heart strain (interp by me) Objective: Vital Signs Temp Pulse Resp BP Pulse Ox 36.4 C 66 16 104/51 L 97 11/26/16 12:00 11/26/16 12:00 11/26/16 12:00 11/26/16 12:00 11/26/16 12:00 Laboratory Results 11/26/16 04:20 11/25/16 11/26/16 11/27/16 05:59 05:59 05:59 Intake Total 1500 Balance 1500 PT 14.0 SEC (12.0-15.0) 11/26/16 04:20 INR 1.09 (0.83-1.16) 11/26/16 04:20 - Physical Exam Constitutional: no apparent distress, appears nourished Eyes: PERRL, anicteric sclera, EOMI Ears, Nose, Mouth, Throat: moist mucous membranes, hearing normal Cardiovascular: regular rate and rhythym, no murmur, rub, or gallop Respiratory: no respiratory distress, no rales or rhonchi Gastrointestinal: normoactive bowel sounds, soft, non-tender abdomen Genitourinary: no bladder fullness, No felix in urethra Skin: warm, normal color Musculoskeletal: full muscle strength, no muscle tenderness Neurologic: AAOx3, sensation intact bilaterally ICD10 Worksheet Patient Problems: Problems Problem Status Onset Acute pyelonephritis Acute Hypernatremia Acute Sepsis Acute Vomiting and diarrhea Acute
[2016-11-26] MEDS: ENOXAPARIN 40 MG/0.4 ML SYR SC SCH (14:42)
[2016-11-26] MEDS ORDERED: IOPAMIDOL (ISOVUE 370) 100 ML BTL IV ONE (14:58)
[2016-11-26] MEDS ORDERED: LORazepam 1 MG TAB PO ONE (16:30)
[2016-11-26 18:18] LABS: POTASSIUM 3.9 mEq/L (3.5-5.2)
[2016-11-26] MEDS: TEMAZEPAM 15 MG CAP PO PRN (21:36)
[2016-11-27] MEDS: HYDROCODONE/APAP 5/325 TAB PO PRN (04:48)
[2016-11-27 05:52] LABS: % IMMATURE GRANULYOCYTES 0.3 % (0.0-1.1); ABSOLUTE IMMATURE GRANULOCYTES 0.04 10^3/uL (0.00-0.10); ADD DIFF? NO; ADD MORPH? NO; ADD SCAN? NO; ATYPICAL LYMPHOCYTE FLAG 30 (0-99); FRAGMENT RBC FLAG 0 (0-99); HEMATOCRIT 31.2 % (38.0-47.0); HEMOGLOBIN 9.9 g/dL (12.6-16.3); LEFT SHIFT FLG 0 (0-99); LIPEMIA HEMOLYSIS FLAG 80 (0-99); MEAN CELL HEMOGLOBIN 28.4 pg (27.9-34.1); MEAN CELL HEMOGLOBIN CONCENTR. 31.7 g/dL (32.4-36.7); MEAN CELL VOLUME 89.4 fL (81.5-99.8); MEAN PLATELET VOLUME 11.3 fL (8.7-11.7); PLATELET CLUMPS FLAG 0 (0-99); PLATELET COUNT 292 10^3/uL (150-400); RED BLOOD CELL COUNT 3.49 10^6/uL (4.18-5.33); RED CELL DISTRIBUTION WIDTH 15.9 % (11.5-15.2)
[2016-11-27 06:15] LABS: MAGNESIUM 1.9 mg/dL (1.6-2.3); POTASSIUM 3.9 mEq/L (3.5-5.2)
[2016-11-27 08:53] LABS: HEMATOCRIT 34.6 % (38.0-47.0)
[2016-11-27] MEDS: PANTOPRAZOLE SODIUM 40 MG TAB PO SCH (08:53)
[2016-11-27] MEDS: PARoxetine HCL 10 MG TAB PO SCH (08:53)
[2016-11-27] MEDS: ENOXAPARIN 40 MG/0.4 ML SYR SC SCH (08:53)
[2016-11-27] MEDS: METOPROLOL TARTRATE 25 MG TAB PO SCH (08:53)
[2016-11-27] MEDS: PARoxetine HCL 20 MG TAB PO SCH (08:53)
[2016-11-27] MEDS: ATORVASTATIN CALCIUM 40 MG TAB PO SCH (08:53)
[2016-11-27 09:10] LABS: ANION GAP 8 mEq/L (8-16); CALCIUM 8.8 mg/dL (8.5-10.4); CARBON DIOXIDE 21 mEq/l (22-31); CHLORIDE 113 mEq/L (97-110); CREATININE 0.7 mg/dL (0.6-1.0); GLOMERULAR FILTRATION RATE > 60; GLUCOSE 91 mg/dL (70-100); POTASSIUM 3.7 mEq/L (3.5-5.2); SODIUM 142 mEq/L (134-144)
[2016-11-27] MEDS ORDERED: POTASSIUM CL 10 MEQ TAB PO ONE (09:15)
[2016-11-27] MEDS ORDERED: GADOBUTROL 10 ML VIAL IVP ONE (10:34)
[2016-11-27] MEDS ORDERED: LORazepam 1 MG TAB PO ONE (10:37)
[2016-11-27 10:54] VITALS: PULSE 54; RESP 18; TEMP 97.9
[2016-11-27] MEDS: amLODIPine BESYLATE 5 MG TAB PO SCH (14:32)
[2016-11-27 15:40] VITALS: BP 109/61; O2SAT 100
--- NOTE | 2016-11-27 15:44 | SOAPPROG ---
JACQUI Progress Note Assessment/Plan: Assessment: 1. Coronary artery disease 2. Chest pain 3. Gastroesophageal reflux 4. History of esophageal rupture Plan: 11/25/16 15:42 11/27/16 15:41 This is the note of 11/26/2016. Assessment 1 coronary artery disease 2. Chest pain 3. Gastroesophageal reflux 4. History of esophageal rupture 5. History of alcohol abuse. When I saw her yesterday she had no new complaints. I am concerned that she could have pulmonary embolic disease so after coronary angiography I proceeded to order a D-dimer which was elevated and we did a CT scan of her chest because of the elevated D-dimer. That is come back negative for pulmonary embolic disease or other major pathology. I have reviewed these results with her. She had a coronary angiogram with no complications. Because she had a what appeared to be regional motion wall motion abnormality on her echocardiographic study I have ordered an MRI to be done today. I have reviewed prevention with her I have answered all her questions. She is walking about. She is having no complications from the coronary angiogram which showed no obstructive coronary disease. And normal LV systolic function. She continues to have ongoing pain which is a major problem and perhaps it is GI in the in nature but the exact cause is not clear. She will follow up with her primary care doctors and with GI as well. She will also follow up with Cardiology as needed. Please note that this note is for the visits that were done on 11/26/2016. I visited her 4 different times during that day. Subjective: This note is for 11/26/2016. This note is being dictated on 11/27/2016. I saw the patient today and we did a coronary angiogram. She has not had any tightness in the chest she has had her GERD complaints and upper chest discomfort which she thinks is due to her GI tract . She has a long history of very severe esophageal disease and problems. She has not had trauma to the head or neck recently. She had no fever chills or cough. She had was not having palpitations lightheadedness near-syncope. She had not had hot swollen joints. She is not having diarrhea. Objective: Vital Signs Temp Pulse Resp BP Pulse Ox 36.6 C 54 L 18 92/50 L 98 11/27/16 10:51 11/27/16 10:51 11/27/16 10:51 11/27/16 10:51 11/27/16 10:51 Laboratory Results 11/27/16 08:43 11/27/16 08:43 11/26/16 11/27/16 11/28/16 05:59 05:59 05:59 Intake Total 1500 2788 Balance 1500 2788 PT 14.0 SEC (12.0-15.0) 11/26/16 04:20 INR 1.09 (0.83-1.16) 11/26/16 04:20 Physical Exam - Physical Exam General Appearance: alert Neck: full range of motion, supple, normal inspection Respiratory: rhonchi Cardiac/Chest: regular rate, rhythm, systolic murmur, No edema Abdomen: soft, No organomegaly, No pulsatile mass Skin: warm/dry Extremities: non-tender, No calf tenderness Neuro/Psych: alert, normal mood/affect ICD10 Worksheet Patient Problems: Problems Problem Status Onset Acute pyelonephritis Acute Hypernatremia Acute Sepsis Acute Vomiting and diarrhea Acute
--- NOTE | 2016-11-27 15:48 | SOAPPROG ---
JACQUI Progress Note Assessment/Plan: Assessment: 1. Coronary artery disease 2. Chest pain 3. Gastroesophageal reflux 4. History of esophageal rupture Plan: 11/25/16 15:42 11/27/16 15:41 This is the note of 11/26/2016. Assessment 1 coronary artery disease 2. Chest pain 3. Gastroesophageal reflux 4. History of esophageal rupture 5. History of alcohol abuse. When I saw her yesterday she had no new complaints. I am concerned that she could have pulmonary embolic disease so after coronary angiography I proceeded to order a D-dimer which was elevated and we did a CT scan of her chest because of the elevated D-dimer. That is come back negative for pulmonary embolic disease or other major pathology. I have reviewed these results with her. She had a coronary angiogram with no complications. Because she had a what appeared to be regional motion wall motion abnormality on her echocardiographic study I have ordered an MRI to be done today. I have reviewed prevention with her I have answered all her questions. She is walking about. She is having no complications from the coronary angiogram which showed no obstructive coronary disease. And normal LV systolic function. She continues to have ongoing pain which is a major problem and perhaps it is GI in the in nature but the exact cause is not clear. She will follow up with her primary care doctors and with GI as well. She will also follow up with Cardiology as needed. Please note that this note is for the visits that were done on 11/26/2016. I visited her 4 different times during that day. 11/27/16 15:50 This is a note of 11/27/2016 She continues to have her same discomfort. She does not want any further testing She would like to go home. She had an elevated D-dimer and her CT scan did not show pulmonary embolic disease The CT scan did not show obvious other causes for her pains. She needs very careful GI evaluation. She may well have a tumor she may well have inflammatory disease in the GI tract she may well have pancreatic disease even or amylase and lipase have been normal. Obviously she cannot gallbladder disease etc. Her coronary artery show no high- grade obstructive disease and her LV g is normal. Her CT of the chest showed no other significant pathology. Her MRI of the heart has been read as normal. She does not need to follow up with me but she needs to follow up closely with her primary care doctor at. She wants to leave today I have discussed her case with the hospitalists. The problem for her and I have gone over this very closely with her is that she has significant pain and we do not know what the cause of it is. It could be musculoskeletal. Could be neurologic. It could be related other things we have not found and the cardiovascular pulmonary system. It certainly could be gastroenterologic in nature. So I have been very carefully explained to her that she needs to pay attention to this discomfort if she gets worse if she has persistent pain if she has new symptoms she needs to come to the hospital and she says she will do this. When we do not know why beeper have very significant symptoms is very important that they do not right off or say that it is not important and that they pay close attention and stay connected to the system. I have gone over this with her as for 2 days in a row now so she knows to watch carefully All her questions have been answered. She does not appear to have any complications from her coronary angiogram. If she should develop bleeding or other complication she does get right back in to see us. This is the note of 11/27/2016. Subjective: Today she is feeling the same pain that she has had since she has been here. It has pain mostly in the right upper chest. Is not radiating to her back down into her arms. She is not lightheaded dizzy short of breath. No nausea vomiting diarrhea No syncope or near syncope No palpitations No peripheral edema. She had her coronary get her coronary angiogram Objective: Vital Signs Temp Pulse Resp BP Pulse Ox 36.6 C 54 L 18 109/61 100 11/27/16 10:51 11/27/16 15:37 11/27/16 15:37 11/27/16 15:37 11/27/16 15:37 Laboratory Results 11/27/16 08:43 11/27/16 08:43 11/26/16 11/27/16 11/28/16 05:59 05:59 05:59 Intake Total 1500 2788 Balance 1500 2788 PT 14.0 SEC (12.0-15.0) 11/26/16 04:20 INR 1.09 (0.83-1.16) 11/26/16 04:20 ICD10 Worksheet Patient Problems: Problems Problem Status Onset Acute pyelonephritis Acute Hypernatremia Acute Sepsis Acute Vomiting and diarrhea Acute
--- NOTE | 2016-11-28 03:06 | GDS ---
[f rep st] DISCHARGE SUMMARY DISCHARGE DIAGNOSES: 1. Sepsis of urinary source. 2. Elevated troponin with negative cardiac catheterization, negative pulmonary angiogram, and negat madhavi cardiac MRI. 3. 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 4. Nausea, vomiting secondary to clonidine, having run out of her medicines. HOSPITAL COURSE: Patient was admitted. Leukocytosis of 31 with a left shift. She was started on c eftriaxone for grossly positive UA. Her urine culture grew out 100,000 colonies of largely pansensi tive E coli. Blood cultures were negative. She had a positive troponin of 0.8. She had an echocar diogram showing inferior wall hypokinesis and thinning consistent with old ND. EF is 55% to 60%. C ardiac catheterization revealed no flow-limiting lesions. CTA showed no pulmonary embolism. Thor madrigal is discharged home today on a course of Bactrim. /[id number]/MODL
== END 2016-11-27 16:20 | disposition home or self-care (01) | DRG 872 ==
LOC: CED 19:46 → INTOOBSV 22:53 → CEDHOLD 22:53 → F3E 11-24 00:46 → F2W 11-24 13:22 → OBSVTOIN 11-25 17:39
PROVIDERS: ADMIT Internal Medicine; ATTEND Internal Medicine
DX: A41.51 Sepsis due to Escherichia coli [E. coli] (principal); N39.0 Urinary tract infection, site not specified; E87.0 Hyperosmolality and hypernatremia; E86.0 Dehydration; F10.21 Alcohol dependence, in remission; I10 Essential (primary) hypertension; E78.5 Hyperlipidemia, unspecified; Z23 Encounter for immunization
CPT/HCPCS: 71020-PO; 80048-PO; 80076-PO; 80307-PO; 81003-PO; 81015-PO; 83605-PO; 83690-PO; 83735-PO; 85025-PO; 96365; A9585; G0009; G0378; J0360; J0696; J1200; J1644; J1650; J1885; J2250; J2405; J3010; J3475; Q9967

== ENCOUNTER 2018-02-18 18:18 | Inpatient (IN) | payer MEDICAID ==
[2018-02-18] MEDS ORDERED: DIAZEPAM 10 MG/2 ML SYR IVP ONE ×2 (19:14→20:15)
[2018-02-18] MEDS ORDERED: DIAZEPAM 5 MG/ML 1 ML SYR ONE ×2 (19:25→20:17)
[2018-02-18] MEDS ORDERED: ONDANSETRON 4 MG/2 ML VIAL ONE (19:48)
--- NOTE | 2018-02-18 20:37 | EDPHY ---
H & P Time Seen by Provider: 02/18/18 18:56 HPI/ROS: HPI Clonidine withdrawal, anxious, chest tightness. 52-year-old female by private vehicle with her friend. This patient has a history of anxiety, depression and hypertension. She has been on clonidine for an extended period of time. She reports that she takes it twice daily and sometimes p.r.n.. She reports she ran out of her prescription 4 days ago. Because it is premature to refill her prescription she has not been able to refill the prescription for clonidine. Her withdrawal symptoms then started today. She describes this as feeling very anxious, hyperventilating, having chest tightness and shaking. She reports that the symptoms really became more severe at around 2:00 p.m. this afternoon. She also states she feels nauseous. ROS: Constitutional: No fever, no chills. As above. Eyes: No discharge. No changes in vision. ENT: No sore throat. No nasal congestion or rhinorrhea. Respiratory: No cough. As above. Cardiac: As above, no palpitations. Gastrointestinal: No abdominal pain, no vomiting, no diarrhea. As above. Genitourinary: No hematuria. No dysuria or increased frequency with urination. Musculoskeletal: No back pain. No neck pain. No myalgias or arthralgias. Skin: No rashes. Neurological: No headache. No focal weakness or altered sensation. Past medical history: Arthritis, psoriasis, tubal ligation, anxiety, depression , [place] reportedly a year ago when she was living in [place], she does not have any stents placed, hyperlipidemia, hypertension. Social history: Former smoker. Denies alcohol. Here with her friend. Physical Exam: General Appearance: Alert, very anxious, tremulous, hyperventilating. This patient is responding to questions appropriately and in full sentences when she calms down with questioning. This patient appears well-hydrated and well- nourished. Eyes: Pupils equal and round no pallor or injection. No lid edema, erythema or injection. ENT, Mouth: Mucous membranes are moist. The pharyngeal tissues are unremarkable. No edema or swelling. No asymmetry suggestive of abscess. No erythema or exudates. Respiratory: There are no retractions, lungs are clear to auscultation with good air movement bilaterally. Tachypnea at 25-30. Cardiovascular: Regular rate and rhythm. No murmur appreciated. Gastrointestinal: Abdomen is soft and nontender, no masses, bowel sounds normal. No focal tenderness at McBurney's point. No Hercules sign. Neurological: Motor sensory function is grossly intact. Cranial nerves are normal. Gait is normal. As above. Skin: Warm and dry, no rashes. Musculoskeletal: Neck is supple and nontender. Extremities are symmetrical. All joints range without pain or impingement. Psychiatric: No agitation. No depression. Database: EKG: EKG time is 6:32 p.m.; EKG shows a narrow complex normal sinus rhythm with a ventricular rate of 81. Probable left atrial enlargement. Short VA interval. The QRS, QT intervals are within normal limits. There are no ST-T wave changes indicative of ischemic or injury pattern. No evidence of right heart strain. Interpreted by me. EKG 2. Time 8:33 p.m.: EKG shows a narrow complex sinus tachycardia with a ventricular rate of 104. Otherwise no significant changes from initial EKG. No evidence of right heart strain. Interpreted by me. Imaging: Procedures: Emergency department course: Triage vital signs reviewed. She is markedly hypertensive. She was also tachypneic in triage. She was initially given 2.5 mg of IV Valium and 0.2 mg of oral clonidine. 8:15 p.m., the patient was reassessed. She is extremely anxious hyperventilating, shaking all over, monitoring coordinator shows mild tachycardia at 110. With a narrow complex. She was given 10 mg of IV Valium. 8:30 p.m., patient re-evaluated, much calmer at this point however pulse oximetries on room air have been dipping down into the upper 70s. Respiratory rate is 16 breaths are shallow. She was placed on nasal cannula oxygen at 5 L. Pulse oximetry up to 95% on that. She does arouse to voice and answers questions appropriately. I explained to her friend that we would admit her to our hospitalist service for further evaluation and management overnight. She endorses. 8:35 p.m., spoke with hospitalist Dr. George Wynn. Case discussed in detail with her. She accepts this patient for transfer and admission to PCU observation. The patient was moved from room for to room 2. 9:45 p.m., patient has remained stable through her emergency department course. She has been sleeping but intermittently wakes up anxious and in a panic state. She has been on nasal cannula oxygen at 2-3 L with pulse oximetries in the mid 90s. Discussed case with EMS. Patient transferred in stable condition ALS to [facility]. Differential Diagnosis: The differential diagnosis on this patient includes but is not limited to clonidine withdrawal, anxiety reaction, serotonin syndrome, sympathomimetic toxidrome. Acute coronary syndrome, pulmonary embolism, myocarditis, pericarditis, aortic dissection unlikely. This represents a partial list of diagnoses considered. These considerations are based on history, physical exam , past history, reassessment and diagnostic testing. Smoking Status: Light smoker Constitutional: Initial Vital Signs Temperature (C) 36.5 C 02/18/18 18:25 Heart Rate 91 02/18/18 18:25 Respiratory Rate 29 H 02/18/18 18:25 Blood Pressure 225/127 H 02/18/18 18:25 O2 Sat (%) 95 02/18/18 18:25 O2 Delivery Mode Room Air O2 (L/minute) 2 Allergies/Adverse Reactions: aspirin Allergy (Verified 02/18/18 18:31) Severe stomach burning Home Medications: Medication Instructions Recorded clonIDINE [Catapres (*)] 0.3 mg PO BID 11/23/16 Atorvastatin Calcium [Lipitor 40 40 mg PO DAILY 11/24/16 mg (*)] Gabapentin [Neurontin 300 MG (*)] 600 mg PO HS 02/19/18 PARoxetine HCL [Paxil 20mg (*)] 40 mg PO DAILY 02/19/18 Pantoprazole Sodium [Protonix 40mg 40 mg PO BID 02/19/18 (*)] QUEtiapine FUMARATE [Seroquel 100 100 mg PO HS 02/19/18 mg (*)] Ranitidine HCl [Zantac] 150 mg PO BID 02/19/18 Medical Decision Making - Data Points Medications Given: Clonidine (Catapres-Tts) 0.2 mg TD Q7D [facility] Stop: 08/18/18 12:44 Last Admin: 02/19/18 13:12 Dose: 0.2 mg Famotidine (Pepcid) 20 mg PO BID [facility] Stop: 08/18/18 10:44 Last Admin: 02/19/18 20:33 Dose: Not Given Gabapentin (Neurontin) 600 mg PO HS [facility] Stop: 08/18/18 20:59 Last Admin: 02/19/18 20:33 Dose: Not Given Hydralazine HCl (Apresoline) 10 mg IVP Q4HRS PRN PRN Reason: SBP Greater Than Stop: 08/18/18 05:43 Last Admin: 02/20/18 00:35 Dose: 10 mg Sodium Chloride (Ns) 1,000 mls @ 200 mls/hr IV CONT DUYEN Stop: 08/18/18 05:44 Last Admin: 02/19/18 15:58 Dose: 1,000 mls Ondansetron HCl (Zofran) 4 mg IVP Q4HRS PRN PRN Reason: Nausea/Vomiting, Can't Take PO Stop: 08/17/18 22:28 Last Admin: 02/20/18 06:02 Dose: 4 mg Pantoprazole Sodium (Protonix) 40 mg PO BID [facility] Stop: 08/18/18 20:59 Last Admin: 02/19/18 20:33 Dose: Not Given Paroxetine HCl (Paxil) 40 mg PO DAILY [facility] Stop: 08/18/18 10:29 Last Admin: 02/19/18 11:07 Dose: 40 mg Promethazine HCl (Phenergan) 6.25 mg IVP Q6H PRN PRN Reason: Nausea/Vomiting, Use 2nd Stop: 08/18/18 10:14 Last Admin: 02/20/18 02:30 Dose: 6.25 mg Quetiapine Fumarate (Seroquel) 100 mg PO HS [facility] Stop: 08/18/18 20:59 Last Admin: 02/19/18 20:33 Dose: Not Given Discontinued Medications Clonidine (Catapres) 0.2 mg PO EDNOW ONE Stop: 02/18/18 18:54 Last Admin: 02/18/18 19:09 Dose: 0.2 mg Clonidine (Catapres) 0.3 mg PO BID [facility] Stop: 08/18/18 10:29 Last Admin: 02/19/18 11:07 Dose: 0.3 mg Diazepam (Valium) 2.5 mg IVP EDNOW ONE Stop: 02/18/18 19:15 Last Admin: 02/18/18 19:26 Dose: 2.5 mg Diazepam (Valium) 10 mg IVP EDNOW ONE Stop: 02/18/18 20:16 Last Admin: 02/18/18 20:21 Dose: 10 mg Pantoprazole Sodium (Protonix) 40 mg PO DAILY [facility] Stop: 08/18/18 08:59 Last Admin: 02/19/18 08:52 Dose: 40 mg Promethazine HCl (Phenergan) 6.25 mg IVP Q6H [facility] Stop: 08/18/18 10:14 Last Admin: 02/19/18 13:09 Dose: Not Given Point of Care Test Results: Chemistry 02/18/18 02/18/18 19:21 18:59 POC Sodium 143 mEq/L mEq/L (135-145) POC Potassium 3.5 mEq/L mEq/L (3.3-5.0) POC Chloride 110 mEq/L mEq/L (97-110) POC BUN 10 mg/dL mg/dL (7-23) POC Creatinine 0.9 mg/dL mg/dL (0.6-1.0) POC Glucose 161 mg/dL H mg/dL (70-100) POC Troponin I 0.00 ng/mL ng/mL (0.00-0.08) ISTAT H&H 02/18/18 19:21 POC Hgb 13.9 gm/dL gm/dL (12.6-16.3) POC Hct 41 % % (38-47) Departure - Departure Disposition: [facility] Acute Clinical Impression: Chest discomfort, History of coronary artery disease, Clonidine withdrawal, Anxiety reaction
[2018-02-18] MEDS: ONDANSETRON 4 MG/2 ML VIAL IVP PRN (22:45)
--- NOTE | 2018-02-18 22:50 | CPEKG ---
Test Reason : OPEN Blood Pressure : / mmHG Vent. Rate : 081 BPM Atrial Rate : 080 BPM P-R Int : 109 ms QRS Dur : 091 ms QT Int : 426 ms P-R-T Axes : 055 079 005 degrees QTc Int : 495 ms Sinus rhythm Atrial premature complex Short [place] interval Probable left atrial enlargement Borderline prolonged QT interval Confirmed by Agnes Bland ([id number]) on 02/18/2018 10:49:52 PM Referred By: Confirmed By:Agnes Bland
--- NOTE | 2018-02-18 23:06 | PDGENHP ---
History and Physical - Chief Complaint clonidine withdrawal, anxiety, chest tightness - History of Present Illness Source - Patient is still somnolent but wakes to name. able to answer some questions but remains a little confused and intermittently cooperative. overall poor historian at this time. EMR reviewed and case discussed with accepting hospitalist provider. HPI - 52 yo F with pmhx significant for OA, psoriasis treated with Humira, anxiety/depression, CAD with reported history of MS and clean cath 12/2016, HTN, HLD who presents to [facility] this afternoon with complaints of worsening withdrawal type symptoms and chest tightness due to withdrawal of clonidine. Patient has been taking clonidine prescribed for HTN but also has been taking prn for anxiety. She ran out of her prescription 4 days ago and has not been able to fill as it was too soon. Patient described burning right/mid chest pain. no radiation. She has also been experiencing tremors, nonproductive cough, chills and SOB all of which patient notes have improved. In the ED at [facility], patient was noted to have significantly elevated BPs, anxiety and tremors. she received clonidine with improvement in her BP as well as 10mg valium. After dosing of valium patient had increased somnolence as well as apnea/hypoxia. She was transferred for continued care and monitoring. History Information - Allergies/Home Medication List Allergies/Adverse Reactions: aspirin Allergy (Verified 02/18/18 18:31) Severe stomach burning Home Medications: clonIDINE [Catapres (*)] 0.1 mg PO TID 11/23/16 [Last Taken 11/17/16] Atorvastatin Calcium [Lipitor 40 mg (*)] 40 mg PO DAILY 11/24/16 [Last Taken 04/25] Paroxetine HCl 10 mg PO DAILY 11/24/16 [Last Taken 11/17/16] Humira 02/18/18 [Last Taken Unknown] I have personally reviewed and updated: family history, medical history, social history, surgical history - Past Medical History Additional medical history: Hypertension. Hyperlipidemia. anxiety/Depression. Psoriasis on Humira. GERD/PUD. reported history of MS no stents. cath 2016 neg for occlusie disease. echo with inferior wall hypokinesis. - Surgical History Additional surgical history: h/o of esophageal rupture (?) repair. BTL. cardiac cath x 2 w/o stents (in [place], and 12/[address] [facility] neg for occlusive disease) - Family History Positive for: diabetes type II (mother). Negative for: vascular disease, CAD - Social History Smoking Status: Light smoker (3 cig/day) Alcohol Use: None Drug Use: Marijuana (daily) Additional social history: Patient does not work, lives with daughter. COR- FULL. Review of Systems Review of Systems: ROS: 10pt was reviewed & negative except for what was stated in HPI & below Constitutional: Reports: chills. Denies: fever, weakness EENMT: Denies: blurred vision, double vision, nose congestion, sore throat Cardiac: Reports: chest pain. Denies: edema, lightheadedness, palpitations Respiratory: Reports: cough, shortness of breath. Denies: orthopnea Gastrointestinal: Reports: abdominal pain, nausea. Denies: vomitting, abdominal distention, diarrhea Genitourinary: Denies: burning, dysuria, hematuria Muscolosketal: Reports: no symptoms Skin: Reports: no symptoms Neurological: Reports: anxiety, depressed, tremors. Denies: headache, numbness , tingling Hematologic/Lymphatic: Reports: no symptoms Immunologic/Allergy: Reports: no symptoms Physical Exam Physical Exam: Selected Entries 02/18/18 18:25 Blood Pressure Automatic Method Heart Rate 91 Respiratory 29 H Rate O2 Sat (%) 95 Temperature (C) 36.5 C Blood Pressure 225/127 H Mean Arterial 159 H Pressure (MAP) O2 Delivery Room Air Mode Temperature Oral Source Temp Pulse Resp BP Pulse Ox 36.5 C 100 22 H 181/110 H 100 02/18/18 18:25 02/18/18 22:03 02/18/18 22:03 02/18/18 22:03 02/18/18 22:03 Constitutional: no apparent distress, other (Patient somnolent, restless. c/o feeling sick (naseous).) Eyes: PERRL, anicteric sclera, EOMI, No scleral injection Ears, Nose, Mouth, Throat: moist mucous membranes, no oral mucosal ulcers, other (no oropharyngeal erythema/exudates), No poor dentition Cardiovascular: regular rate and rhythym, no murmur, rub, or gallop, pulses symmetric bilaterally, No edema Peripheral Pulses: 2+: dorsalis-pedis (R), dorsalis-pedis (L) Respiratory: no respiratory distress, no rales or rhonchi, clear to auscultation , No respiratory distress Gastrointestinal: normoactive bowel sounds, soft, non-tender abdomen, No tenderness, No guarding Genitourinary: no bladder tenderness, No felix in urethra Skin: warm, normal color, no rashes or abrasions Musculoskeletal: full muscle strength (moves all extremities while laying in bed. ), No generalized weakness Neurologic: other (grossly nonfocal exam. patient is somnolent and a little confused answers some questions inappropriately and falls back asleep.), No AAOx3, No facial droop Psychiatric: anxious, flat affect, other (confused as noted above. restless when awoken. tremulous intermittently.), No interacting appropriately, No thought process linear, No depressed, No agitated Lab Data & Imaging Review POC Hgb 13.9 gm/dL (12.6-16.3) 02/18/18 19:21 POC Hct 41 % (38-47) 02/18/18 19:21 POC Sodium 143 mEq/L (135-145) 02/18/18 19:21 POC Potassium 3.5 mEq/L (3.3-5.0) 02/18/18 19:21 POC Chloride 110 mEq/L (97-110) 02/18/18 19:21 POC BUN 10 mg/dL (7-23) 02/18/18 19:21 POC Creatinine 0.9 mg/dL (0.6-1.0) 02/18/18 19:21 POC Glucose 161 mg/dL (70-100) H 02/18/18 19:21 POC Troponin I 0.00 ng/mL (0.00-0.08) 02/18/18 18:59 Visualized and Interpreted EKG results: Yes EKG Interpretation: Positive for: normal sinsus rhythm EKG additional interpertation: NSR 80s. PAC. No acute ST changes. QTc 495. Assessment & Plan Assessment: 52 yo F with pmhx significant for HTN, HLD, reported MS with inferior hypokinesis and normal cath 12/2016, anxiety/depression, psoriasis on humira presents to ED at [facility] today with complaints of anxiety, chest discomfort and SOB. Patient with abrupt cessation of clonidine as she ran out 4 days ago. Chest discomfort (Acute) - ddx including reflux vs. anxiety vs hypertensive urgency vs other respiratory issue. initial EKG and trop negative. pt with reported MS several years ago and clean cath 12/2016. BPs have improved s/p clonidine. Patient may benefit from alternative option but at this time will allow for some permissive elevation in BPs as patient has had appropriate drop from her initial presentation. SBP now 180s down from 220s. patient reports chest discomfort more consistent with her reflux sx. add ppi. gi cocktail once patinent nausea improved. Anxiety reaction (Acute) - s/p valium at [facility]. Patient still slightly restless, somnolent and confused. will hold off on additional sedatives for now. check drug screen. patient QTc 490s and listed medication including paxil may need to consider alternative nursing home. will make buspar avail prn tid. nausea - zofran prn. cardiac monitoring with slightly prolonged qtc. hyperglycemia - mildly elevated. nonfasting lab. repeat BS with AM labs. History of coronary artery disease (Acute) - normal cath 12/2016. echo 2016 noting inferior wall hypokinesis. repeat trop in AM. psoriasis - no observed plaques. patient med list notes humira unclear at this time patient last injection. check CBC in AM. check CXR with c/o cough and subjective fevers/chills. FEN - cardiac diet ordered. PO hydration. patient does not appear dehydrated at this time. electrolyte monitoring replacement if needed. PPX - SCDs. encourage ambulation. low risk for VTE. COR - FULL Dispo - Patient admitted to observation status on PCU for close cardiac monitoring.
[2018-02-18 23:57] LABS: PLATELET COUNT 360 10^3/uL (150-400)
[2018-02-19 04:29] LABS: PLATELET COUNT 436 10^3/uL (150-400)
[2018-02-19] MEDS: hydrALAZINE 20 MG/ML VIAL IVP PRN (06:11)
[2018-02-19] MEDS: NS 1,000 ML IV SCH ×2 (06:11→15:58)
[2018-02-19] MEDS: ONDANSETRON 4 MG/2 ML VIAL IVP PRN ×2 (08:06→12:36)
[2018-02-19] MEDS ORDERED: PANTOPRAZOLE SODIUM 40 MG TAB PO SCH (09:00)
[2018-02-19] MEDS ORDERED: PROMETHAZINE HCL 25 MG/ML INJ IVP SCH (10:15)
[2018-02-19] MEDS ORDERED: PARoxetine HCL 20 MG TAB PO SCH (10:30)
--- NOTE | 2018-02-19 10:58 | HOSPPROG ---
Hospitalist Progress Note Assessment/Plan: DIAGNOSES: * severe diffuse abdominal pain, nausea vomiting; no peritonitis on examination * Symptoms present x1 week and worsening over time * metabolic acidosis developing * severe hypertension, sinus tachycardia * Multiple factors including uncontrolled pain, withdrawal from clonidine, anxiety and likely some dehydration contributing to these numbers, as well as other possible factors * elevated cardiac troponin I believe is either chronic or due to her hypertension and tachycardia * Previous workup for higher troponins 1 year ago showed normal coronary angiography, normal cardiac MRI, and no evidence of PE on CT angio * anxiety disorder; very anxious now but is in quite a bit of pain in bed nausea so hard to determine with the underlying anxiety is doing * Note that the patient has been taking extra clonidine doses recently to try and treat anxiety and had run out of anxiety early Cause of the abdominal pain syndrome is uncertain. The severe pain out of proportion to her exam would potentially raise concern for ischemic bowel disease, and with a metabolic acidosis will need to do stat imaging now to rule that out. I do not hear bowel sounds that would suggest a bowel obstruction and she has been having bowel movements. Multiple other causes possible. Lipase is normal rules out pancreatitis. At her primary care office earlier this week she did mention some difficulty with urine retention so I will scan her bladder for appropriate voiding PLANS: * Continue IV hydration * Pain management * Continue her clonidine * Stat CT of abdomen pelvis with contrast * Bladder scan at bedside * Follow her metabolic acidosis closely * Follow vital signs closely and treat blood pressure aggressively as needed Seen by me on hospitalist rounds and multidisciplinary rounds SUBJECTIVE: Severe nausea at this time and currently retching, complains of ongoing diffuse abdominal pain present x1 week, states she has been having bowel movements normally but vomiting at home At the moment for me denies chest pain or dyspnea Severely anxious OBJECTIVE Vitals reviewed: Blood pressure still high but better, remains tachycardic in sinus rhythm, no fever, tachypneic I think at the moment due to nausea 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, my review: Sinus tachycardia Exam: alert but remains mildly disoriented, very anxious and appears very uncomfortable from pain and nausea skin warm dry color ok resps not labored lungs clear BSs heart regular abd soft nondistended diffuse subjective tenderness without guarding or rebound , no palpable abnormality, bowel sounds present limbs warm, no edema iv site ok Laboratory data: Troponin 0.048 (in December 2016 she had 3 troponins done here all more significantly elevated than this, but had negative angiography and negative cardiac MRI, negative CT angio chest at that time; echocardiogram at that time suggested some inferior hypokinesis with thinning but this was not confirmed by either the angiography with ventriculogram or the MRI) Metabolic acidosis low bicarb today though her lactate has improved and is normal Renal function remains normal White blood cell count remains quite high and platelets are little bit high Objective: Vital Signs Temp Pulse Resp BP Pulse Ox 36.8 C 98 34 H 161/94 H 98 02/19/18 10:30 02/19/18 10:30 02/19/18 10:30 02/19/18 10:30 02/19/18 10:30 Laboratory Results 02/19/18 03:45 02/19/18 03:45 02/18/18 02/19/18 02/20/18 06:59 06:59 06:59 Intake Total 1000 Output Total 500 Balance 500 - Time Spent With Patient Time Spent with Patient: greater than 35 minutes Time Spent with Patient: Greater than 35 minutes spent on this patients care, greater than 50% of time spent counseling, educating, and coordinating care regarding the above mentioned plan. ICD10 Worksheet Patient Problems: Problems Problem Status Onset Anxiety reaction Acute Chest discomfort Acute History of coronary artery disease Acute Acute pyelonephritis Acute Hypernatremia Acute Sepsis Acute Vomiting and diarrhea Acute
[2018-02-19] MEDS: PROMETHAZINE HCL 25 MG/ML INJ IVP PRN ×2 (11:00→20:26)
[2018-02-19] MEDS: FAMOTIDINE 20 MG TAB PO SCH ×2 (11:07→20:33)
[2018-02-19] MEDS ORDERED: IOPAMIDOL (ISOVUE-300) 100 ML BTL ONE (13:24)
--- NOTE | 2018-02-19 14:21 | ASMTCASEMG ---
Living Arrangements What is your living Answers: Alone arrangement? Who do you live with? Type Of Residence What kind of residence do Answers: House you live in? Discharge Plan Comments Coordination Status Comments Notes: Pt is a 52 y/o female admitted for chest pain, nausea and vomiting Pt has a hx of depression and anxiety, CAD with reported hx of [place] and clean cath 12/2016, HTN, and HLD. Pt is being followed by transitional care. No therapies ordered at this time. Pt will most likely d/c independent when medically stable. CM available for changes. Plan: Independent Date Signed: 02/19/2018 02:08 PM Electronically Signed By:LORNA Wen
[2018-02-19] MEDS: PANTOPRAZOLE SODIUM 40 MG TAB PO SCH (20:33)
[2018-02-19] MEDS: GABAPENTIN 300 MG CAP PO SCH (20:33)
[2018-02-19] MEDS ORDERED: QUEtiapine FUMARATE 100 MG TAB PO SCH (21:00)
[2018-02-20] MEDS: hydrALAZINE 20 MG/ML VIAL IVP PRN (00:35)
[2018-02-20] MEDS: PROMETHAZINE HCL 25 MG/ML INJ IVP PRN ×2 (02:30→09:55)
[2018-02-20 03:56] LABS: PLATELET COUNT 389 10^3/uL (150-400)
[2018-02-20] MEDS: ONDANSETRON 4 MG/2 ML VIAL IVP PRN (06:02)
--- NOTE | 2018-02-20 08:38 | PDMN ---
Medical Necessity Medical necessity: [facility] M89 CP, M197 HTN, PGPM Pain Management: 52 y/o presents w/ chest discomfort, confusion, tachycardia, tachypnea and hypertension (225/127 ), HR cont to be 110s-130s, BP still elevated, now experiencing severe abdominal pain, n/v, metabolic acidosis is developing, elevated troponins. Cont IV hydaration and pain management, further dx tests orders, treat blood pressure aggressively. Switch to IP status per MD order as of 02/19/18 @ 2135. Hx HTN, HLD, past MS w/ cath 2017
[2018-02-20] MEDS: FAMOTIDINE 20 MG TAB PO SCH ×2 (09:49→21:40)
[2018-02-20] MEDS: PANTOPRAZOLE SODIUM 40 MG TAB PO SCH ×2 (09:49→21:40)
[2018-02-20] MEDS: ATORVASTATIN CALCIUM 40 MG TAB PO SCH (09:49)
[2018-02-20] MEDS: ACETAMINOPHEN 325 MG TAB PO PRN (09:50)
--- NOTE | 2018-02-20 10:21 | HOSPPROG ---
Hospitalist Progress Note Assessment/Plan: DIAGNOSES: * severe diffuse abdominal pain, nausea vomiting; * CT scan with questionable finding of some mild small bowel enteritis but no other explanation for her abdominal pain and tenderness * No fever, no peritonitis on examination * metabolic acidosis * At this point of appears resolved though there is some hyperchloremia from IV fluids * severe hypertension, sinus tachycardia * Tachycardia persists though hypertension is resolving with clonidine patch on * Rehydration does not seem to be improving the tachycardia * No clear infection identified * ? If she might have serotonin syndrome * acute encephalopathy * Again raises question of possible serotonin syndrome * elevated cardiac troponin I believe is either chronic or due to her hypertension and tachycardia * Previous workup for higher troponins 1 year ago showed normal coronary angiography, normal cardiac MRI, and no evidence of PE on CT angio * anxiety disorder, chronic, recently with poor control * Recent addition of Seroquel to Paxil, question developing serotonin syndrome so meds on hold * Note that the patient has been taking extra clonidine doses recently to try and treat anxiety and had run out of anxiety early As above I am concerned that she may have a serotonin syndrome due to her Seroquel and Paxil at home. This could explain her nausea however would not necessarily explain her abdominal pain. There could be infection though there is not any clearly identified site or source of infection with no fevers and cultures negative. She does have some brien nephric fat inflammation that is mild and of uncertain chronicity or etiology. Could consider pyelonephritis though she has no pyuria and negative leukocyte esterase on 2 urine samples here so far so doubt that. PLANS: * Continue to hold her Seroquel and Paxil; will need careful follow-up in the outpatient setting with her mental health providers/primary care provider * Continue IV hydration * Pain management trying to avoid narcotic due to her confusion, she has aspirin intolerance I do not know she is able to take other nonsteroidals are not * Continue her clonidine for blood pressure along with p.r.n. Medications * No specific treatment for her tachycardia now is it is slowing somewhat and she is tolerating it well * Could consider Cyproheptadine but so far she has not keeping anything down orally * Follow closely for any developing signs infection or other possible illness contributing to her picture Seen by me on hospitalist rounds and multidisciplinary rounds SUBJECTIVE: Still with nausea and abdominal pain, but no vomiting today. Essentially not eating or drinking. States she had a bowel movement this morning She has mention to the nurse that she has "migraine headache pain", but during my 5 visits with her yesterday and today she has not once mention headache pain. No respiratory symptoms, no chills or sweats OBJECTIVE Vitals reviewed: Blood pressure better controlled on clonidine patch, remains tachycardic in sinus rhythm though so far slower than last night, no fever Normal O2 sats on room air [employer], my review: Sinus tachycardia Exam: alert but remains disoriented, still somewhat agitated but notably less than yesterday, appears less anxious and uncomfortable than yesterday. No tremor, but there is significant startle that occurs frequently during my visit. Notably when I ask her a question she will often begin to answer, get the 1st word or 2 of her answer out and then very suddenly look another direction or close her eyes, and suddenly 10 sec later seem to awake with a sudden start all and have no apparent awareness of the conversation we had just been having. During our conversation today it was uncommon for her to be able to complete any sentences or stick with any line of discussion to answer question fully. skin warm dry color ok with no rash or other lesions, good distal capillary refill resps not labored lungs clear BSs heart regular but still tachycardic abd soft nondistended diffuse less tender, no guarding or rebound, no palpable abnormality, bowel sounds present limbs warm, no edema iv site ok Laboratory data: Repeat UA yesterday with no evidence of infection Renal function remains good, normal anion gap but she is a bit hyperchloremic from IV fluids at this time but does not appear to have a metabolic acidosis from her illness now Electrolytes okay a White blood cell count actually higher at 22,000 today with large predominance of neutrophils Objective: Vital Signs Temp Pulse Resp BP Pulse Ox 36.9 C 112 H 19 145/90 H 96 02/20/18 08:00 02/20/18 08:00 02/20/18 08:00 02/20/18 08:00 02/20/18 08:00 Laboratory Results 02/20/18 03:48 02/20/18 03:48 02/19/18 02/20/18 02/21/18 06:59 06:59 06:59 Intake Total 350 Output Total 800 Balance -450 - Time Spent With Patient Time Spent with Patient: greater than 35 minutes Time Spent with Patient: Greater than 35 minutes spent on this patients care, greater than 50% of time spent counseling, educating, and coordinating care regarding the above mentioned plan. ICD10 Worksheet Patient Problems: Problems Problem Status Onset Anxiety reaction Acute Chest discomfort Acute History of coronary artery disease Acute Acute pyelonephritis Acute Hypernatremia Acute Sepsis Acute Vomiting and diarrhea Acute
[2018-02-20] MEDS: NS 1,000 ML IV SCH ×2 (11:19→16:12)
--- NOTE | 2018-02-20 12:27 | ASMTCMCOM ---
CM Note CM Note Notes: Pts case discussed in tx rounds. PT is recommending SNF. Dr. Pierson ordered OT. Dr. Pierson is suspecting that pts mentation is directly related to her clonidine withdrawal. Dr. Pierson is hopeful that her mobility will return once she is more stabilized. Needs are TBD at this time. CM to follow. Plan: TBD Date Signed: 02/20/2018 12:06 PM Electronically Signed By:LORNA Wen
--- NOTE | 2018-02-20 12:36 | ASMTCMCOM ---
CM Note CM Note Notes: CM started ultc-100 and the copy is in pts chart and in allscripts. Date Signed: 02/20/2018 12:15 PM Electronically Signed By:LORNA Wen
[2018-02-20] MEDS ORDERED: ENALAPRILAT DIHYDRATE 1.25 MG/ML VIAL IVP PRN (14:01)
[2018-02-20] MEDS: GABAPENTIN 300 MG CAP PO SCH (21:40)
[2018-02-21] MEDS: ACETAMINOPHEN 325 MG TAB PO PRN ×3 (02:28→20:13)
[2018-02-21] MEDS: PANTOPRAZOLE SODIUM 40 MG TAB PO SCH ×2 (08:02→20:13)
[2018-02-21] MEDS: FAMOTIDINE 20 MG TAB PO SCH ×2 (08:02→20:13)
[2018-02-21] MEDS: ATORVASTATIN CALCIUM 40 MG TAB PO SCH (08:02)
[2018-02-21] MEDS: PROMETHAZINE HCL 25 MG/ML INJ IVP PRN ×2 (12:37→18:39)
--- NOTE | 2018-02-21 13:06 | ASMTCMCOM ---
CM Note CM Note Notes: CM met with Pt during rounds. Pt's Clonodine patch will remain in place when she is d/fitz. D/C home possible tomorrow. No CM needs identified. CM will follow. D/C Plan: Anticipate independent. Date Signed: 02/21/2018 01:05 PM Electronically Signed By:Annel Mancuso
--- NOTE | 2018-02-21 13:07 | HOSPPROG ---
Hospitalist Progress Note Assessment/Plan: DIAGNOSES: * severe diffuse abdominal pain, nausea vomiting, now resolved; * CT scan with questionable finding of some mild small bowel enteritis but no other explanation for her abdominal pain and tenderness * metabolic acidosis, resolved * severe hypertension, sinus tachycardia * Tachycardia and hypertension both much better today * acute encephalopathy * Resolved and back to baseline at this time * elevated cardiac troponin I believe is either chronic or due to her hypertension and tachycardia * Previous workup for higher troponins 1 year ago showed normal coronary angiography, normal cardiac MRI, and no evidence of PE on CT angio * anxiety disorder, chronic, recently with poor control * Recent addition of Seroquel to Paxil, question developing serotonin syndrome so meds on hold * Note that the patient has been taking extra clonidine doses recently to try and treat anxiety and had run out of anxiety early The patient's acute syndrome of abnormal vital signs with acute encephalopathy and startle reflexes are improving dramatically since yesterday. Again the etiology of all this is uncertain. The patient believes that this is withdrawal from clonidine. Would also consider certain his syndrome with recent addition of new medicine on top of her Paxil. Her abdominal pain syndrome does not seem to fit in I am not certain what that is due to. Potentially viral or other cause but either weight is resolving nicely so far PLANS: * Continue to hold her Seroquel and Paxil; will need careful follow-up in the outpatient setting with her mental health providers/primary care provider * Discontinue IV hydration * Continue topical clonidine for blood pressure and will plan to discharge her on topical clonidine * Follow closely for any developing signs infection or other possible illness contributing to her picture * Increase activity as able today and will see if she is able to continue eating Seen by me on hospitalist rounds and multidisciplinary rounds SUBJECTIVE: Doing much better today, wide awake, has eaten some small amount of food, no nausea, dramatically less pain No other new symptoms OBJECTIVE Vitals reviewed: Blood pressure and pulse are much better today, still afebrile Normal O2 sats on room air [employer], my review: Normal sinus Exam: Now wide awake, relaxed, oriented, interacting much more normally, conversant, normal mentation No tremor or fasciculations, normal cranial nerves Looks much more comfortable relaxed, smiling resps not labored lungs clear BSs heart regular but still tachycardic abd soft nondistended nontender, no guarding or rebound, no palpable abnormality , bowel sounds present limbs warm, no edema iv site ok Microbiology data: Blood cultures remain negative Objective: Vital Signs Temp Pulse Resp BP Pulse Ox 36.7 C 104 H 20 116/66 98 02/21/18 08:01 02/21/18 08:01 02/21/18 08:01 02/21/18 08:01 02/21/18 08:01 Laboratory Results 02/20/18 03:48 02/20/18 03:48 02/20/18 02/21/18 02/22/18 06:59 06:59 06:59 Intake Total 350 3865 Output Total 800 1300 Balance -450 2565 ICD10 Worksheet Patient Problems: Problems Problem Status Onset Anxiety reaction Acute Chest discomfort Acute History of coronary artery disease Acute Acute pyelonephritis Acute Hypernatremia Acute Sepsis Acute Vomiting and diarrhea Acute
--- NOTE | 2018-02-21 13:10 | ASMTCMCOM ---
CM Note CM Note Notes: PT is recommending SNF for rehab. D/C needs need to be reconciled with PT and hospitalist. D/C Plan: TBD Date Signed: 02/21/2018 01:10 PM Electronically Signed By:Annel Mancuso
[2018-02-21] MEDS: GABAPENTIN 300 MG CAP PO SCH (20:13)
[2018-02-22] MEDS: ACETAMINOPHEN 325 MG TAB PO PRN ×2 (03:02→08:00)
[2018-02-22] MEDS: PROMETHAZINE HCL 25 MG/ML INJ IVP PRN (03:53)
[2018-02-22] MEDS: PANTOPRAZOLE SODIUM 40 MG TAB PO SCH (08:00)
[2018-02-22] MEDS: ATORVASTATIN CALCIUM 40 MG TAB PO SCH (08:00)
[2018-02-22] MEDS: FAMOTIDINE 20 MG TAB PO SCH (08:00)
[2018-02-22 08:03] VITALS: BP 126/81
--- NOTE | 2018-02-22 12:04 | PDDCSUM ---
Discharge Summary Discharge Summary: DISCHARGE DIAGNOSES: * acute syndrome involving hypertension, tachycardia, encephalopathy, nausea vomiting of uncertain etiology * Serotonin syndrome from medications or withdrawal from clonidine are considered * nausea vomiting abdominal pain uncertain etiology * Either related to above or possibly a viral syndrome considered * bipolar disorder on chronic anti depressant, with recent addition of Seroquel to manage anxiety and other related symptoms * As above question whether Seroquel may have been related to her presenting symptoms and causative fashion * elevated cardiac troponin without evidence of acute cardiac syndrome, and with prior evidence of angiography and cardiac MRI showing no coronary disease * inappropriate use of extra doses of clonidine by the patient to try and manage her anxiety in the recent past PROCEDURES: CT scan abdomen pelvis with subtle findings raising a question of possible gastroenteritis HOSPITAL COURSE SUMMARY: This patient presented to the hospital complaining of a wide range of symptoms including nausea vomiting abdominal pain, worsening anxiety. She was severely hypertensive and quite tachycardic with a sinus rhythm. She also had evidence of acute encephalopathy with some somnolence, delirium, and significant increased startle reflex. Clonus was not definitively demonstrated on examination. She was a bit hyper reflexive however. Before coming to the hospital she had recently seen her primary care physician because of ongoing symptoms of anxiety in the setting of bipolar disorder on Paxil for depressive symptoms. Seroquel had been added to her medicine list about a week before admission. In addition the patient had been apparently taking extra doses of her clonidine which is prescribed for blood pressure, she had been taking these extra doses for anxiety based on her own plan. She stated that she was unable to get a refill of her clonidine and had run out of clonidine about 4 days before presenting here. In addition to all these issues the patient had been suspected to be quite dehydrated due to vomiting home at the time she arrived. There is no fever. The only findings to suggest the possibility of infection were subtle changes potentially consistent with a gastroenteritis noted on CT scan of the abdomen with some mild thickening of portions of the duodenum and jejunum and with a distended stomach. It was considered that her presentation might be due to a serotonin syndrome due to medications and might be due partly to clonidine withdrawal. She was taking 3 mg three times daily at home and has been on that dose for quite a while. In terms of her abdominal pain and tenderness it was considered that she might have gastroenteritis but there were no other definitive findings on examination, blood tests, CT scan. The patient was treated with antihypertensive medications, IV hydration, all medicines with potential serotonin syndrome implications were discontinued including her Paxil and Seroquel as well as some of the anti nausea medicines. Gradually the patient's syndrome resolved quite nicely. At this point she has good blood pressure control and her pulse has turned to a normal sinus rhythm and a normal rate. Her encephalopathy has completely resolved. Her abdominal pain is almost entirely resolved, her nausea is almost entirely resolved and she is able to eat food and fluids at this point. We have been treating her here with clonidine via clonidine patch TTS 2 for her blood pressure and this is successful so far. We at this point have not been using any of her mental health medicines. She is felt to be stable to go home. At this point the plan to go home will be to continue on clonidine by patch and the patient understands that she should not change this medicine at a time without instructions from her physicians. I have instructed her to resume her Paxil but not start back on her Seroquel until she follows up with her primary care physician and/or psychiatry. She will make an appointment this week in clinic. PENDING TEST RESULTS: None MEDICATION CHANGES: Discontinue oral clonidine Addition of clonidine patch TTS 2 She is instructed not to take Seroquel until further follow-up with primary care and/or psychiatry for reassessment of management of her mental health symptoms, but she will resume her Paxil at this time due to ongoing depression symptoms FOLLOW-UP PLAN: She will plan to see Dr. Augustin this week in clinic Greater than 35 minutes bedside and care coordination time today
--- NOTE | 2018-02-22 12:17 | ASMTLACE ---
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
--- NOTE | 2018-02-22 12:18 | ASMTCMCOM ---
CM Note CM Note Notes: Per [facility] medicine, patient has been medically cleared for discharge to home. No needs identified. CM avialble should needs ariose. Plan: Home independently. Date Signed: 02/22/2018 12:18 PM Electronically Signed By:Jimena oFwler RN
--- NOTE | 2018-02-22 12:55 | ASMTCMCOM ---
CM Note CM Note Notes: Met with patient she is not currently seen by mental health. Will provide number for [facility] as patient believes treatment of her depression would be benificial. Plan: Home independently. Date Signed: 02/22/2018 12:54 PM Electronically Signed By:Jimena Fowler RN
== END 2018-02-22 13:05 | disposition home or self-care (01) | DRG 52 ==
LOC: CED 18:18 → CEDHOLD 20:37 → F2W 22:15 → OBSVTOIN 02-19 21:35
PROVIDERS: ADMIT Internal Medicine; ATTEND Internal Medicine
DX: G93.49 Other encephalopathy (principal); E78.5 Hyperlipidemia, unspecified; R07.9 Chest pain, unspecified; R00.0 Tachycardia, unspecified; R11.2 Nausea with vomiting, unspecified; I10 Essential (primary) hypertension; T46.5X6A Underdosing of other antihypertensive drugs, initial encounter; F31.9 Bipolar disorder, unspecified; E86.0 Dehydration; F41.9 Anxiety disorder, unspecified; R10.9 Unspecified abdominal pain; L40.9 Psoriasis, unspecified; I25.2 Old myocardial infarction
CPT/HCPCS: 80307; 82435-PO; 82565-PO; 82947-PO; 84132-PO; 84295-PO; 84484-PO; 84520-PO; 85014-PO; 96374; 97162-GP; 97165-GO; G0378; G0480; J0360; J2405; J2550; J3360; Q9967

== ENCOUNTER 2018-10-17 17:47 | Inpatient (IN) | payer MEDICAID ==
[2018-10-17] MEDS ORDERED: HALOPERIDOL LACT 5 MG/ML INJ IVP ONE (18:02)
--- NOTE | 2018-10-17 18:03 | EDPHY ---
H & P Stated Complaint: Generalized abdominal pain, nausea, vomiting, diarrhea x 1 day Time Seen by Provider: 10/17/18 17:50 HPI/ROS: CHIEF COMPLAINT: Nausea vomiting and diarrhea HISTORY OF PRESENT ILLNESS: Patient is a 53-year-old female who comes to the emergency department complaining of diffuse abdominal pain, cramping, nausea vomiting and diarrhea for about 48 hr. No fever. No bloody vomit. No travel. No chest pain or shortness of breath. No history of abdominal surgery. She initially stated that she once had a esophageal rupture which is inaccurate. she tells me that simply had blood mixed in her vomit at 1 point several years ago. She also has a history of bipolar, hypertension, and reported history of IA but reports that she was cathed twice and did not require stents. She was admitted in February of last year for clonidine withdrawal. She had been taking her clonidine inappropriately for anxiety and ran out early and presented hypertensive an altered. She denies this happening today and has still been taking her clonidine daily. She is moaning and screaming as she walks down the [place] and asking for pain medicine from triage. She is in some distress and answers questions inconsistently. She also has a history of skin lesions and psoriasis but is no longer on rafaela. Severity: Moderate Modifying factors: None REVIEW OF SYSTEMS: Constitutional: denies: chills, fever, recent illness, recent injury EENTM: denies: blurred vision, double vision, nose congestion Respiratory: denies: cough, shortness of breath Cardiac: denies: chest pain, irregular heart rate, lightheadedness, palpitations Gastrointestinal/Abdominal: denies: abdominal pain, diarrhea, nausea, vomiting, blood streaked stools Genitourinary: denies: dysuria, frequency, hematuria, pain Musculoskeletal: denies: joint pain, muscle pain Skin: denies: lesions, rash, jaundice, bruising Neurological: denies: headache, numbness, paresthesia, tingling, dizziness, weakness Hematologic/Lymphatic: denies: blood clots, easy bleeding, easy bruising Immunologic/allergic: denies: HIV/AIDS, transplant 10 systems reviewed and negative except as noted EXAM: GENERAL: Emotional distress, stable, inconsistent in her answers to questions. HEAD: Atraumatic, normocephalic. EYES: Pupils equal round and reactive to light, extraocular movements intact, sclera anicteric, conjunctiva are normal. ENT: TMs normal, nares patent, oropharynx clear without exudates. Moist mucous membranes. NECK: Normal range of motion, supple without lymphadenopathy or JVD. LUNGS: Breath sounds clear to auscultation bilaterally and equal. No wheezes rales or rhonchi. HEART: Regular rate and rhythm without murmurs, rubs or gallops. ABDOMEN: Soft, nontender, normoactive bowel sounds. No guarding, no rebound. No masses appreciated. BACK: No CVA tenderness, no spinal tenderness, step-offs or deformities EXTREMITIES: Normal range of motion, no pitting or edema. No clubbing or cyanosis. No clonus NEUROLOGICAL: Cranial nerves II through XII grossly intact. Normal speech, normal gait. 5/5 strength, normal movement in all extremities, normal sensation , normal reflexes PSYCH: Normal mood, normal affect. SKIN: Multiple small lesions consistent with psoriasis Source: Patient - Personal History LMP (Females 10-55): Post Menopausal Current Tetanus Diphtheria and Acellular Pertussis (TDAP): Yes Tetanus Vaccine Date: WITHIN 10 YRS - Medical/Surgical History Hx Asthma: No Hx Chronic Respiratory Disease: No Hx Diabetes: No Hx Cardiac Disease: Yes Hx Renal Disease: No Hx Cirrhosis: No Hx Alcoholism: No Hx HIV/AIDS: No Hx Splenectomy or Spleen Trauma: No Other PMH: ARTHRITIS, Psoriasis, tubes tied,anxiety/depression, high cholesterol , htn - Family History Significant Family History: No pertinent family hx - Social History Smoking Status: Current every day smoker Alcohol Use: None Constitutional: Initial Vital Signs Temperature (C) 36.5 C 10/17/18 17:52 Heart Rate 73 10/17/18 17:52 Respiratory Rate 18 10/17/18 17:52 Blood Pressure 237/113 H 10/17/18 17:52 O2 Sat (%) 98 10/17/18 17:52 O2 Delivery Mode Room Air Allergies/Adverse Reactions: aspirin Allergy (Verified 10/17/18 17:54) Pt reports Severe stomach burning Home Medications: Medication Instructions Recorded Atorvastatin Calcium [Lipitor 40 11/24/16 mg (*)] Gabapentin [Neurontin 300 MG (*)] 02/19/18 PARoxetine HCL [Paxil 20mg (*)] 02/19/18 clonIDINE [Catapres-Tts (*)] 10/17/18 Medical Decision Making - Diagnostics EKG Interpretation: An EKG obtained and was read and documented in trace view. Please see trace view for full reading and report. Sinus tachycardic, no QRS widening or QT prolongation. Imaging Results: Imaging Impressions Abdomen CT 10/17/18 18:02 Impression: 1. Suspect mild gastroenteritis. There is no evidence of a mechanical obstruction or intra-abdominal fluid collection. There is a normal appearance of the appendix. 2. Moderate hiatal hernia. Findings were discussed with JONH SHTEH MD at 20:12, on 10/17/2018. Imaging: Discussed imaging studies w/ call or contact centre operator Radiologist ED Course/Re-evaluation: 8:00 p.m. the patient is gotten significantly worse after Benadryl, Haldol and Zofran. She is confused and will not follow commands and will not answer questions. This is very similar to her course 6 months ago when she was admitted for clonidine withdrawal. Blood pressures improved to 180/100. She has however now tachycardic and somewhat agitated. She remains afebrile. She complains of needing to urinate but just urinated in the bed. 814 I discussed the case with Dr. Muller who will admit. Will place in the ICU because she is somewhat combative. Have given additional Ativan. 8:25 p.m. The patient's daughter told nursing staff over the phone the last time this happened it was because the patient mixed alcohol with clonidine. We do not have the ability to check an alcohol level here but we are transferring her to the hospital. Differential Diagnosis: Partial list of the Differential diagnosis considered include but were not limited to; substance abuse, withdrawal, psychosis, anxiety, medication effect and although unlikely based on the history and physical exam, I also considered acute coronary disease, ischemia, CVA, meningitis, electrolyte. Critical Care Time: Critical care time spent by me, Dr. Sheth exclusive with this patient was 45 minutes, exclusive of the PA time exclusive of procedures. The organ system that was at risk was neurologic, gastrointestinal and I gave IV fluids, medications, admission, consultation to prevent worsening of the patient's condition - Data Points Laboratory Results: 10/17/18 18:26 POC Sodium 148 mEq/L H mEq/L (135-145) POC Potassium 3.5 mEq/L mEq/L (3.3-5.0) POC Chloride 113.0 mEq/L H mEq/L (97-110) POC Total CO2 19 mEq/L L mEq/L (22-31) POC BUN 16 mg/dL mg/dL (7-23) POC Creatinine 0.9 mg/dL mg/dL (0.6-1.0) POC Glucose 162 mg/dL H mg/dL (70-100) POC Calcium 10.1 mg/dL mg/dL (8.5-10.4) POC Total Bilirubin 0.7 mg/dL mg/dL (0.1-1.4) POC AST 29 IU/L IU/L (14-46) POC ALT 24 IU/L IU/L (9-52) POC Alk Phosphatase 136 IU/L H IU/L (38-126) POC Total Protein 9.1 g/dL H g/dL (6.3-8.2) POC Albumin 5.0 g/dL g/dL (3.5-5.0) Medications Given: Discontinued Medications Diphenhydramine HCl (Benadryl Injection) 25 mg IVP EDNOW ONE Stop: 10/17/18 18:03 Last Admin: 10/17/18 18:20 Dose: 25 mg Haloperidol Lactate (Haldol Injection) 5 mg IVP EDNOW ONE Stop: 10/17/18 18:03 Last Admin: 10/17/18 18:22 Dose: 5 mg Sodium Chloride (Ns) 1,000 mls @ 0 mls/hr IV EDNOW ONE; Wide Open PRN Reason: Protocol Stop: 10/17/18 18:15 Last Admin: 10/17/18 18:15 Dose: 1,000 mls Ketorolac Tromethamine (Toradol) 15 mg IVP EDNOW ONE Stop: 10/17/18 18:15 Last Admin: 10/17/18 18:28 Dose: 15 mg Lorazepam (Ativan Injection) 2 mg IVP EDNOW ONE Stop: 10/17/18 20:19 Last Admin: 10/17/18 20:20 Dose: 2 mg Ondansetron HCl (Zofran) 4 mg IVP EDNOW ONE Stop: 10/17/18 18:15 Last Admin: 10/17/18 18:17 Dose: 4 mg Point of Care Test Results: CBC CBC Collection Date 10/17/18 CBC Collection Time 18:20 WBC 23.85 RBC 4.97 HGB 14.8 HCT 43.0 PLT 436 Neut # 21.32 Neut 89.4 LYMPH # 1.94 LYMPH 8.1 MCV 86.5 Chemistry 10/17/18 18:26 POC Sodium 148 mEq/L H mEq/L (135-145) POC Potassium 3.5 mEq/L mEq/L (3.3-5.0) POC Chloride 113.0 mEq/L H mEq/L (97-110) POC Total CO2 19 mEq/L L mEq/L (22-31) POC BUN 16 mg/dL mg/dL (7-23) POC Creatinine 0.9 mg/dL mg/dL (0.6-1.0) POC Glucose 162 mg/dL H mg/dL (70-100) POC Calcium 10.1 mg/dL mg/dL (8.5-10.4) POC Total Bilirubin 0.7 mg/dL mg/dL (0.1-1.4) POC AST 29 IU/L IU/L (14-46) POC ALT 24 IU/L IU/L (9-52) POC Alk Phosphatase 136 IU/L H IU/L (38-126) POC Total Protein 9.1 g/dL H g/dL (6.3-8.2) POC Albumin 5.0 g/dL g/dL (3.5-5.0) Departure - Departure Disposition: [facility] Inpatient Acute Clinical Impression: Acute gastroenteritis Altered mental status Qualifiers: Altered mental status type: disorientation Qualified Code(s): R41.0 - Disorientation, unspecified Abdominal pain Qualifiers: Abdominal location: generalized Qualified Code(s): R10.84 - Generalized abdominal pain Hypertension Qualifiers: Hypertension type: unspecified Qualified Code(s): I10 - Essential (primary) hypertension Condition: Critical
[2018-10-17] MEDS ORDERED: IOPAMIDOL (ISOVUE-300) 100 ML BTL ONE (18:09)
[2018-10-17] MEDS ORDERED: ONDANSETRON 4 MG/2 ML VIAL ONE (18:13)
[2018-10-17] MEDS ORDERED: NS 1,000 ML IV ONE (18:14)
[2018-10-17] MEDS ORDERED: ONDANSETRON 4 MG/2 ML VIAL IVP ONE (18:14)
[2018-10-17] MEDS ORDERED: KETOROLAC 30 MG/1 ML SDV IVP ONE (18:14)
[2018-10-17] MEDS ORDERED: LORazepam 2 MG/ML INJ ONE (20:15)
[2018-10-17] MEDS ORDERED: LORazepam 2 MG/ML INJ IVP ONE (20:18)
--- NOTE | 2018-10-17 20:57 | CPEKG ---
Test Reason : OPEN Blood Pressure : / mmHG Vent. Rate : 097 BPM Atrial Rate : 096 BPM P-R Int : 105 ms QRS Dur : 146 ms QT Int : 435 ms P-R-T Axes : 248 234 261 degrees QTc Int : 553 ms Sinus or ectopic atrial rhythm Short PA interval Confirmed by Agnes Bland [id number]), editor producer Carter Sheth ([id number]) on 10/17/2018 8:57:21 PM Referred By: George Wynn Confirmed By:Agnes Bland
[2018-10-17] MEDS ORDERED: LORazepam 2 MG/ML INJ IVP PRN (22:15)
[2018-10-17] MEDS ORDERED: ONDANSETRON 4 MG/2 ML VIAL IVP PRN (22:15)
[2018-10-17] MEDS ORDERED: ONDANSETRON DISINTEGRATING 4 MG TAB PO PRN (22:15)
[2018-10-17] MEDS ORDERED: ACETAMINOPHEN 325 MG TAB PO PRN (22:15)
[2018-10-17] MEDS ORDERED: hydrALAZINE 20 MG/ML VIAL IVP PRN (22:28)
--- NOTE | 2018-10-17 23:18 | PDGENHP ---
History and Physical - Chief Complaint Abdominal pain - History of Present Illness Source-patient currently somnolent sedated as she was quite agitated. EMR was reviewed and case discussed with ED provider. HPI - this is a 53-year-old female with past medical history significant for HTN , HLD, osteoarthritis, psoriatic arthritis, anxiety, depression bipolar type who [place] [facility] with complaints of diffuse abdominal pain and cramping sensation. Patient had nausea vomiting diarrhea for the last 48 hr. It is unclear if she has been having any fevers or chills. Per review of EMR chart patient reported that she had been taking clonidine as prescribed without any additional dosing. She is no longer on Humira. She denied any previous chest pain, shortness of breath, palpitations or fevers or chills. History Information - Allergies/Home Medication List Allergies/Adverse Reactions: aspirin Allergy (Verified 10/17/18 17:54) Pt reports Severe stomach burning Home Medications: Atorvastatin Calcium [Lipitor 40 mg (*)] 11/24/16 [Last Taken 11/17/16] Gabapentin [Neurontin 300 MG (*)] 02/19/18 [Last Taken Unknown] PARoxetine HCL [Paxil 20mg (*)] 02/19/18 [Last Taken Unknown] clonIDINE [Catapres-Tts (*)] 10/17/18 [Last Taken Unknown] I have personally reviewed and updated: family history, medical history, social history, surgical history - Past Medical History Additional medical history: Hypertension. Hyperlipidemia. anxiety/Depression bipolar. Psoriasis on Humira. GERD/PUD. reported history of [place] no stents. cath x2 neg for occlusie disease. echo with inferior wall hypokinesis. - Surgical History Additional surgical history: h/o of esophageal rupture (?) repair. BTL. cardiac cath x 2 w/o stents (in [place], and 12/2016 at [facility] neg for occlusive disease) - Family History Positive for: diabetes type II (mother). Negative for: vascular disease, CAD - Social History Smoking Status: Current every day smoker Additional social history: lives with daughter. COR- FULL. Review of Systems Review of Systems: ROS: 10pt was reviewed & negative except for what was stated in HPI & below Physical Exam Physical Exam: Selected Entries 10/17/18 17:52 Blood Pressure Automatic Method Heart Rate 73 Respiratory 18 Rate O2 Sat (%) 98 Temperature (C) 36.5 C Blood Pressure 237/113 H Mean Arterial 154 H Pressure (MAP) O2 Delivery Room Air Mode Temperature Oral Source Temp Pulse Resp BP Pulse Ox 36.4 C 136 H 26 H 185/107 H 96 10/17/18 22:12 10/17/18 23:00 10/17/18 23:00 10/17/18 23:00 10/17/18 23:00 Constitutional: no apparent distress, not in pain, other (NAD. The patient is lying quietly in bed, sedated. She moans intermittently try to weaker.) Eyes: PERRL (Unable to examine both eyes as patient clamps down closes her eyelid on the left. Right eye slightly dilated but reactive to light.), No icteric sclera, No scleral injection Ears, Nose, Mouth, Throat: moist mucous membranes, No poor dentition Cardiovascular: regular rate and rhythym, no murmur, rub, or gallop, tachycardia , No edema Peripheral Pulses: 1+: dorsalis-pedis (R), dorsalis-pedis (L) Respiratory: no respiratory distress, no rales or rhonchi, clear to auscultation , reduced air movement (Patient with decreased inspiratory effort.) Gastrointestinal: normoactive bowel sounds, soft, non-tender abdomen, no palpable masses, other (Limited exam due to patient's sedation.), No distension Genitourinary: no bladder tenderness, felix in urethra (Clear yellow urine) Skin: warm, abrasion (Left forearm), other (Patient is skin color) Musculoskeletal: other (Limited exam due to patient's sedation.) Neurologic: sensation intact bilaterally, other (Grossly nonfocal exam. Periportal RN reports that patient is moving all leg extremities appropriately during placement of Felix should be made increasingly agitated), No facial droop Psychiatric: other (Limited evaluation patient's current condition.) Lab Data & Imaging Review POC Sodium 148 mEq/L (135-145) H 10/17/18 18:26 POC Potassium 3.5 mEq/L (3.3-5.0) 10/17/18 18:26 POC Chloride 113.0 mEq/L (97-110) H 10/17/18 18:26 POC Total CO2 19 mEq/L (22-31) L 10/17/18 18:26 POC BUN 16 mg/dL (7-23) 10/17/18 18: POC Creatinine 0.9 mg/dL (0.6-1.0) 10/17/18 18: POC Glucose 162 mg/dL (70-100) H 10/17/18 18: POC Calcium 10.1 mg/dL (8.5-10.4) 10/17/18 18: POC Total Bilirubin 0.7 mg/dL (0.1-1.4) 10/17/18 18: POC AST 29 IU/L (14-46) 10/17/18 18: POC ALT 24 IU/L (9-52) 10/17/18 18: POC Alk Phosphatase 136 IU/L (38-126) H 10/17/18 18: POC Total Protein 9.1 g/dL (6.3-8.2) H 10/17/18 18: POC Albumin 5.0 g/dL (3.5-5.0) 10/17/18 18: Urine Color YELLOW 10/17/18 22:45 Urine Appearance MODERATELY TURBID 10/17/18 22:45 Urine pH 6.0 (5.0-7.5) 10/17/18 22:45 Ur Specific [place] 1.032 (1.002-1.030) H 10/17/18 22:45 Urine Protein NEGATIVE (NEGATIVE) 10/17/18 22:45 Urine Ketones NEGATIVE (NEGATIVE) 10/17/18 22:45 Urine Blood NEGATIVE (NEGATIVE) 10/17/18 22:45 Urine Nitrate NEGATIVE (NEGATIVE) 10/17/18 22:45 Urine Bilirubin NEGATIVE (NEGATIVE) 10/17/18 22:45 Urine Urobilinogen NEGATIVE EU (0.2-1.0) 10/17/18 22:45 Ur Leukocyte Esterase TRACE (NEGATIVE) H 10/17/18 22:45 Urine RBC 1-3 /hpf (0-3) 10/17/18 22:45 Urine WBC 15-25 /hpf (0-3) H 10/17/18 22:45 Ur Epithelial Cells 1+ /lpf (NONE-1+) 10/17/18 22:45 Urine Bacteria 4+ /hpf (NONE SEEN) H 10/17/18 22:45 Urine Mucus TRACE /lpf (NONE-1+) 10/17/18 22:45 Urine Glucose NEGATIVE (NEGATIVE) 10/17/18 22:45 Patient with POC leukocytosis normal H&H. Please review ED provider's note. Imaging Review: Contrast Enhanced CT Scan of the Abdomen and Pelvis Clinical History: 53-year-old female with generalized abdominal pain, nausea, vomiting, and diarrhea for one day. Technique: Oral contrast was not administered. Following the uncomplicated intravenous administration of 85 mL of Isovue-300, a multidetector helical CT scan was obtained from the lung bases inferiorly through the proximal femora, with images reformatted at 5.00 and 1.50 mm increments , and reviewed at a variety of window and level settings. Parasagittal and paracoronal reconstructed images are reviewed on the workstation. The DFOV is 47.3 cm. Dose reduction techniques were utilized. The technologist repeated the study due to some perceived motion, and images were also acquired during the excretory phase. Comparison Study: Contrast-enhanced CT scan of the abdomen and pelvis, dated . Findings: Lung Bases: Clear. There is a trace amount of fluid in the inferolateral right pericardial recess. Liver: Normal in size and homogeneous in attenuation. Bile Ducts: Normal. Gallbladder: There are no calcified gallstones, wall thickening, or pericholecystic fluid. Pancreas: Normal. Spleen: Normal. Adrenal Glands: The right adrenal gland is normal. There is some mild uniform thickening involving the caudal margin of the left adrenal gland, similar to the previous study, consistent with mild hyperplasia. There is no discrete mass. Kidneys/Ureters/Urinary Bladder: Normal in size, shape, and position, with symmetrical in renal function. The ureters are normal, and are followed to the urinary bladder. Ureteral jets are seen. The urinary bladder contour is normal. GI Tract: There is a moderate-sized hiatal hernia present. There is intraluminal fluid within the stomach, and there is some mild intraluminal fluid seen within the ileum, with no abnormal wall enhancement or mechanical obstruction. The colon is relatively decompressed in this patient with recent diarrhea. There is no focal wall thickening, or diverticulitis. There is some residual fecal material within the lower rectosigmoid. There is no pneumatosis. The appendix appears normal. Retroperitoneum: Normal. Mesentery/Omentum/Peritoneum: There is no ascites, free air, or localized fluid collection.] There is no mesenteric adenopathy, mesenteric edema, omental caking, or peritoneal nodule identified. Vessels: The abdominal aorta is normal in size, and tapers normally. The IVC is normal in caliber. The splenic vein, superior mesenteric vein, and the main portal vein are patent. Reproductive Organs: The uterus is seen to the left of midline. There is no adnexal mass. Abdominal Wall: Negative. Osseous Structures: There is a mild levolumbar curvature, which may be positional. The vertebral body heights are maintained. There is no aggressive osseous lesion. There are some mild degenerative changes of the SI joints. Impression: 1. Suspect mild gastroenteritis. There is no evidence of a mechanical obstruction or intra- abdominal fluid collection. There is a normal appearance of the appendix. 2. Moderate hiatal hernia. Findings were discussed with JONH AL MD at 20:12, on 10/17/2018. Dictated By: Tom Cervantes MD Visualized and Interpreted EKG results: Yes EKG additional interpertation: NSR and 90s. No acute ST elevations. There is a subtle ST depression in the anterior leads. QTC is 553. Assessment & Plan Assessment: this is a 53-year-old female with past medical history significant for HTN, HLD , osteoarthritis, psoriatic arthritis, anxiety, depression bipolar type who [place] [facility] with complaints of diffuse abdominal pain and cramping sensation. #Abdominal pain (Acute) - suspicious for a viral gastroenteritis based on CT abdomen pelvis. No acute findings otherwise. Will check a lipase. Preliminary troponin returned a slightly elevated which could be secondary to her elevated blood pressures in addition. Will continue to trend. She is not a candidate for aspirin due to allergy. She does not complained of any chest pain per notations from ED provider. Patient is currently unable to participate in discussion. #Altered mental status (Acute) - acute encephalopathy. ddx - infectious vs metabolic vs polypharmacy or other. She does not have any focal deficits on exam. She has not had any weakness when she becomes increasingly agitated. Patient is less so following at Ativan. She did receive hydralazine p.r.n. For blood pressure control and shortly thereafter she developed tachycardia. Unclear this could possibly be related to alcohol withdrawal as well. Will hold off on any beta blockers in setting of patient's potential use for clonidine risk of unbalanced alpha agonist. #Acute gastroenteritis (Acute) - imaging showing signs of gastroenteritis. Patient abdominal exam is soft but it is limited due to her postop pain. #Accelerated hypertension - blood pressures have improved slightly. Patient did receive some hydralazine but subsequently developed tachycardia. Unclear if this is related and/or separate event. Previous hospital stay patient has had reported she had run out of her clonidine and so was more of a withdrawal picture in addition to the possibility for serotonin syndrome which this could also be the case as well. #HLD- continue statin #Psoriasis - no longer on Humira #Anxiety/depression - hold off on patient's QT prolonging medications at this time #Psoriasis-per report no longer on immunomodulators or immunotherapy. FEN -IV fluids. Electrolyte monitoring replacement if needed. Diet as tolerated. PPX-SCDs. Cor status- cor status-full at this time as per patient's previous wishes during hospital stay February 2018. Disposition patient admitted to observation status pending reassessment in the morning. The patient should show improvement anticipate less than 2 midnight stay.
[2018-10-17] MEDS ORDERED: FLUMAZENIL 0.5 MG/5 ML MDV IVP PRN (23:25)
[2018-10-17] MEDS ORDERED: PANTOPRAZOLE SODIUM 40 MG VIAL IVP ONE (23:33)
[2018-10-17] MEDS: LORazepam 2 MG/ML INJ IVP PRN (23:43)
[2018-10-18] MEDS: NS 1,000 ML IV SCH (00:19)
[2018-10-18] MEDS ORDERED: HYDROmorphONE/DILAUDID 1 MG/ML INJ IVP ONE (01:10)
[2018-10-18] MEDS ORDERED: NS 1,000 ML IV ONE (01:35)
--- NOTE | 2018-10-18 07:05 | CPEKG ---
Test Reason : OPEN Blood Pressure : / mmHG Vent. Rate : 143 BPM Atrial Rate : 143 BPM P-R Int : 090 ms QRS Dur : 128 ms QT Int : 330 ms P-R-T Axes : 000 244 -77 degrees QTc Int : 509 ms Sinus tachycardia Probable left atrial enlargement Nonspecific IVCD with LAD Diffuse non-specific ST depressions Confirmed by Hemal Ash ([id number]) on 10/18/2018 7:05:40 AM Referred By: George Wynn Confirmed By:Hemal Ash
[2018-10-18] MEDS ORDERED: ENOXAPARIN 40 MG/0.4 ML SYR SC SCH (09:00)
[2018-10-18] MEDS ORDERED: PANTOPRAZOLE SODIUM 40 MG VIAL IVP SCH (09:00)
[2018-10-18] MEDS ORDERED: HEPARIN 10,000 UNIT/10 ML MDV (1,000 UNIT/ML) IVP PRN (09:30)
[2018-10-18 09:49] LABS: PLATELET COUNT 394 10^3/uL (150-400)
[2018-10-18] MEDS ORDERED: ALTEPLASE 2 MG VIAL IVP PRN (09:58)
--- NOTE | 2018-10-18 10:04 | SOAPPROG ---
SOAP Progress Note Assessment/Plan: Assessment: Cardiology consult performed and dictated. 53 y/o woman with HTN, hyperlipidemia and bipolar admitted last night with delirium and abdominal pain and BP 237/113. ECG abnormal with sinus tachycardia at [address] elevation V1 and 1.[address] depression inferior-laterally. Troponin 0.09 to 0.42. Past cardiac testing: cath 12/23 with mild CAD. Echo at bedside now with LVEF > 60% and no severe , MR or pericardial effusion. IMP: 1)HTN emergency with demand ischemia NQWMI. Doubt acute coronary plaque rupture. 2)Delirium 3)Abdominal pain 4)Possible Clonidine overdose PLAN: 1)no urgent cardiac cath for now 2)Heparin gtt without IV bolus 3)Nitropaste 1''' q6hr for more BP relief 4)Diltiazem gtt start at 10mg/hr with titration for SBP 145-170 5)after above meds on board, remove Clonidine patch later this afternoon. 6)serial CPK and Troponin q6hrs until peaks and starts to fall. 7)needs PICC line. Thanks. Will follow with you closely. 10/18/18 09:59 Objective: Vital Signs Temp Pulse Resp BP Pulse Ox 37.2 C 118 H 26 H 180/113 H 97 10/18/18 04:00 10/18/18 09:00 10/18/18 09:00 10/18/18 09:00 10/18/18 09:00 Laboratory Results 10/18/18 09:30 10/18/18 04:05 10/17/18 10/18/18 10/19/18 05:59 05:59 05:59 Intake Total 2373 Output Total 445 Balance 1928 PT REJ 10/18/18 09:30 INR TNP 10/18/18 09:30 ICD10 Worksheet Patient Problems: Problems Problem Status Onset Abdominal pain Acute Acute gastroenteritis Acute Altered mental status Acute Hypertension Acute Acute pyelonephritis Acute Anxiety reaction Acute Chest discomfort Acute History of coronary artery disease Acute Hypernatremia Acute Sepsis Acute Vomiting and diarrhea Acute
[2018-10-18] MEDS ORDERED: DILTIAZEM HCL/D5W 125 ML IV SCH (10:30)
[2018-10-18] MEDS: NITROGLYCERIN 2% 1 GM PACKET TP SCH ×4 (10:33→23:36)
[2018-10-18] MEDS: DILTIAZEM HCL/D5W 125 ML IV SCH ×2 (10:34→18:30)
--- NOTE | 2018-10-18 11:18 | ECHO ---
[email or web address] [address] [address] Main: [phone] Echocardiography Examination Transthoracic Name: KIM CUEVAS MR#: [id number] Study Date: 10/18/2018 Study Time: 09:27 AM Date of : 1965 Age: 53 year(s) Height: 152.4 cm (60 in.) Weight: 67.59 kg (149 lb.) BSA: 1.65 m2 Gender: Female Examination: Echo Contrast: Image Quality: Technically Difficult Rhythm: Sinus tachycardia Heart Rate: 122 bpm BP: 186 mmHg/104 mmHg Indication: abnormal ekg and elevated troponin Procedure Staff Referring Physician: Laboratory Machinist: Lena Montalvo [facility] Reading Physician: Alan Harvey MD Requesting Provider: Ordering Physician: Clemente Davis Indication: abnormal ekg and elevated troponin Measurements Chambers AV/MV Label Value Normal Value Label Value Normal Value LVOT Vmax 1.65 m/s (0.7m/s - 1.1m/s) AV PGmax 13 mmHg LVOTd 1.6 cm (1.8cm - 2cm) AV Vmax 1.81 m/s LVDd, 2D 3.7 cm (3.9cm - 5.3cm) DAY (Vmax) 1.8 cm2 LVDs, 2D 2.5 cm (2.1cm - 4cm) MV VTI 48.1 cm IVSd, 2D 0.9 cm (0.6cm - 1.1cm) MV PGmax 25 mmHg LVPWd, 2D 0.8 cm MV PGmean 15 mmHg LVEF, 2D 63 % (54% - 74%) MV PHT 0.05 s RVDd, 2D 2.6 cm (1.9cm - 3.8cm) MVA PHT 4.3 cm2 LADs, 2D 2.6 cm (2.7cm - 3.8cm) MV PHT 51 ms Additional Vessels TV/PV Label Value Normal Value Label Value Normal Value AoRoot, 2D 2.2 cm (1.4cm - 2.6cm) PV PGmax 11 mmHg PV Vmax, Caliper 1.66 m/s (0.6m/s - 0.9m/s) Conclusions Left Ventricle: CONCLUSIONS:1)Technically limited echo secondary to patient's delirium.2)Normal to hyperdynamic LV systolic function with a LVEF of 71% and no focal wall motion abnormalitites.3)Peak LVOT gradient 11mmHg with no LVH. Patient: KIM CUEVAS Study Date: 10/18/2018 Page 1 of 2 09:27 AM Elevated probably from hyperdynamic state.4)Mean mitral valve gradient 15mmHg probably related with mild-moderate MS and hyperdynamic state.5)Mild MR without MV prolapse.6)Trivial TR noted. Unable to accurately assess PA pressures.7)No significant pericardial effusion seen. Findings Left Ventricle: The left ventricle cavity is small. CONCLUSIONS: 1)Technically limited echo secondary to patient's delirium. 2)Normal to hyperdynamic LV systolic function with a LVEF of 71% and no focal wall motion abnormalitites. 3)Peak LVOT gradient 11mmHg with no LVH. Elevated probably from hyperdynamic state. 4)Mean mitral valve gradient 15mmHg probably related with mild-moderate MS and hyperdynamic state. 5)Mild MR without MV prolapse. 6)Trivial TR noted. Unable to accurately assess PA pressures. 7)No significant pericardial effusion seen. EF evaluated by EF (single plane Pitts's). Left ventricle wall thickness is normal. Although no diagnostic regional wall motion abnormality was identified, this possibility cannot be completely excluded on the basis of this study. Cannot determine LAP and Diastolic Dysfunction Grade. Right Ventricle: Normal size right ventricle. The RV function appears grossly normal. Left Atrium: The left atrium is mildly dilated. Right Atrium: Grossly normal right atrial size. Mitral Valve: Abnormal appearing mitral valve, mild diastolic doming and thickened leaflets. Prior echo 11-25-16 mean gradient across the MV was reported as 6mmHg, with a BP or 180-104 and normal heart rate. On today's echo with heart rate of 123bpm and BP of 186/104 the mean gradient is 15mmHg. . Mild mitral regurgitation. Mild to moderate mitral valve stenosis. Aortic Valve: Aortic valve is poorly visualized. No aortic valve regurgitation. There is no aortic stenosis. Tricuspid Valve: Tricuspid valve is poorly visualized. Trivial tricuspid regurgitation. Pulmonary artery pressure cannot be assessed due to inadequate TR signal. Pulmonic Valve: Pulmonic valve is poorly visualized. Aorta: The aortic root size in 2D measures 2.2 cm. The aortic root exhibits normal size. Aorta Measurements AoRoot, 2D is 2.2 cm. IVC: The inferior vena cava is poorly visualized. Pericardium: No pericardial effusion. Exam Details Procedure Ordered: Echo Procedure Status: Routine study Image Quality: Technically Difficult Facility Location: Cardiac Echo 1 (No Signature Object) Patient: KIM CUEVAS Study Date: 10/18/2018 Page 2 of 2 09:27 AM [id number]
--- NOTE | 2018-10-18 13:06 | HOSPPROG ---
Hospitalist Progress Note Assessment/Plan: Pt presented to [facility] with N/V/Abd pain. Found to have increasing agitation and encephalopathy. Trop noted be elevated and EKG with concerns for ischemia #HTN Emergency #Acute Ischemia due to HTN emergency #Long QT syndrome: avoid meds causing this #Acute Encephalopathy, likely multifactorial, metabolic, infectious, HTN playing a role, Delirium -does not follow commands #UTI #Leukocytosis: unclear what component is chronic as it has been elevated previously #Hx of Psoriasis, currently not on a immuno modulator. Previously on Humira #Abd Pain -CT A/P essentially negative -This was reported -negative exam findings today. No distention, does not wd to palpation #N/V, reported. No n/v per nursing since admitted Plan: I ordered a stat echo, trop, and EKG. consulted Cardiology and we started a Heparin drip. Cards does not feel that the patient needs a cath at this time. She recently had a cath a year ago which was unremarkable symptoms are likely from HTN. Nitro paste and CCB stopped. Clonidine is not a good option going forward. Would consider GABRIEL-I, BB, and diuretic monitor QT, avoid meds causing prolongation, stop Zofran Allergy to Aspirin noted cont IVF, will decrease rate slightly Avoid centrally acting meds if possible NPO total critical care time is 45 minutes in mgmt of HTN emergency and ischemia Subjective: does not follow commands. agitated Objective: Vital Signs Temp Pulse Resp BP Pulse Ox 37.1 C 108 H 24 H 163/94 H 99 10/18/18 08:00 10/18/18 12:52 10/18/18 12:52 10/18/18 12:52 10/18/18 12:52 Laboratory Results 10/18/18 09:30 10/18/18 04:05 10/17/18 10/18/18 10/19/18 05:59 05:59 05:59 Intake Total 2373 Output Total 445 Balance 1928 PT REJ 10/18/18 09:30 INR TNP 10/18/18 09:30 - Physical Exam Constitutional: no apparent distress Eyes: PERRL, EOMI Ears, Nose, Mouth, Throat: moist mucous membranes, hearing normal Cardiovascular: regular rate and rhythym Respiratory: no respiratory distress, no rales or rhonchi, clear to auscultation Gastrointestinal: normoactive bowel sounds, soft, non-tender abdomen Skin: warm Neurologic: AAOx3 Psychiatric: interacting appropriately, not anxious, not encephalopathic Lymph, Heme, Immunologic: No petechiae ICD10 Worksheet Patient Problems: Problems Problem Status Onset Abdominal pain Acute Acute gastroenteritis Acute Altered mental status Acute Hypertension Acute Acute pyelonephritis Acute Anxiety reaction Acute Chest discomfort Acute History of coronary artery disease Acute Hypernatremia Acute Sepsis Acute Vomiting and diarrhea Acute
--- NOTE | 2018-10-18 14:10 | ASMTCMCOM ---
CM Note CM Note Notes: CM spoke with RN as pt is still encephalopathic. Pt admitted for nausea, vomit and abd pain with agitation, AMS and HTN crisis. Hospitalist suspect ETOH abuse and withdrawal despite negative tox screen. Dtr. Ann ([phone]) brought pt in and denies pt drinks daily though concedes pt had been drinking day of admit. CM left message for Ann. Pt has history of Bipolar, anxiety, Psoriotic arthritis for which she was previously on Humira. No therapies ordered yet as pt is not able to participate yet. D/C date and plan TBD. CM to follow. D/C Plan: TBD Date Signed: 10/18/2018 02:09 PM Electronically Signed By:Kristina Bustillo
[2018-10-18] MEDS: THIAMINE HCL 500 MG in NS 100 ML IV SCH (14:18)
--- NOTE | 2018-10-18 14:33 | GCON ---
[f rep st] CONSULTATION CARDIOLOGY CONSULT DATE OF CONSULTATION: 10/18/2018 REASON FOR CONSULTATION: Evaluate woman with markedly elevated hypertension, delirium, abdominal william n, elevated troponin and abnormal EKG. HISTORY OF PRESENT ILLNESS: The patient is in delirium and unable to give a history. She is a 53-ye ar-old woman with a history of hypertension, hyperlipidemia, and bipolar disorder. She did have a he art catheterization in December of 2016, which demonstrated minimal nonobstructive coronary artery diseas e with normal LV function. She reportedly is on clonidine patch at home and there are reports that s he does not use it regularly and sometimes too much. She was brought in by her family last night wit h delirium and abdominal pain and an initial blood pressure of 237/113. This morning she is still de lirious and moans of abdominal pain. Her EKG shows sinus tachycardia with 1.[address] depression in the inferolateral leads and isolated [address]-elevation in lead V1. Her blood pressure currently is 183/104. Her troponin initially in the emergency room was 0.09 and is now 0.42. PAST MEDICAL HISTORY: As per HPI. PAST SURGICAL HISTORY: Unknown. CURRENT MEDICATIONS: Ceftriaxone 1 g IV daily, clonidine patch q.week, Ativan, Protonix IV, and norm al saline at 125 mL/hour. ALLERGIES: Aspirin, unknown reaction. SOCIAL HISTORY: Unknown. Patient unable to give a history. FAMILY HISTORY: Unknown. Patient unable to give a history secondary to delirium. REVIEW OF SYSTEMS: Unknown. Patient is too delirious to give an accurate review of systems history. PHYSICAL EXAM: VITAL SIGNS: Pulse 123 and sinus tachycardia. Blood pressure 183/104, respirations 30. 1 L/minute, 97%. Weight 67.9 kg. GENERAL: A delirious woman, moaning with abdominal pain, but not reporting any chest pain. HEENT/NECK: Eyes, pupils no icterus or sclerosis. Neck supple. No nuchal rigidity. Oral mucosa, no cyanosis. Neck, jugular venous pressure to 7 cm. Carotid pulses 2 + bilaterally. No obvious bruits. LUNGS: Clear to auscultation bilaterally anteriorly. HEART: Ta chycardic. Normal PMI. Regular rate with no obvious murmurs or S3. ABDOMEN: No guarding or reboun d. EXTREMITIES: 2+ peripheral pulses including femoral and pedal pulses. No edema noted. MUSCULOS KELETAL: No scoliosis. NEURO: Delirious affect, not oriented to person, place, or time. SKIN: No cyanosis or bleeding. EKG sinus tachycardia with isolated [address]-elevation in V1 and 1.[address] depression in the inferi or lateral leads. LABS: White count 20.7, hematocrit 38, platelets 409,000, MCV 90. Sodium 148, potassium 3.8, chlori de 119, bicarb 20, BUN 14, creatinine 0.7, glucose 129, troponin 0.42. IMPRESSION AND RECOMMENDATIONS: 53-year-old woman with a history of hypertension, hyperlipidemia, an d bipolar disorder with relatively reassuring heart catheterization in December of 2016 demonstrated no s ignificant coronary artery disease. An echo done at the bedside currently demonstrates an LVEF great er than 60% with no focal wall motion abnormalities and no obvious severe aortic stenosis or mitral r egurgitation or pericardial effusion. Clinically, I think she is having a hypertensive emergency nancy ng with possible ingestion of something, whether it be alcohol or her clonidine patch. I do not thin k she is having acute plaque rupture of her coronaries and her troponin is elevated more from demand ischemia from her hypertension. RECOMMENDATIONS: 1. Would not take to the pathology lab technician acutely now. 2. Would start on a heparin drip without bolus. 3. Would start on nitroglycerin paste 1 inch q.6 hours more for blood pressure relief. 4. Would put a PICC line in and start on diltiazem 10 mg/hour and titrate for a goal systolic blood pressure of 145-170. 5. Would get a repeat troponin and serum CK level in 6 hours. 6. Follow her abdominal exam closely to make sure she does not develop an acute surgical abdomen. 7. Once her nitroglycerin paste and diltiazem are on board, would stop her clonidine patch and use a different blood pressure medicine long-term once she is discharged from the hospital. Thank you for allowing me to participate in the care of Ms. Singh. The cardiology service will foll ow along closely with you during her hospitalization. /[id number]/MODL
[2018-10-18] MEDS: LORazepam 2 MG/ML INJ IVP PRN ×3 (15:36→23:49)
--- NOTE | 2018-10-18 16:02 | CPEKG ---
Test Reason : OPEN Blood Pressure : / mmHG Vent. Rate : 118 BPM Atrial Rate : 117 BPM P-R Int : 117 ms QRS Dur : 126 ms QT Int : 310 ms P-R-T Axes : 260 000 268 degrees QTc Int : 435 ms Incomplete analysis due to missing data in precordial lead(s Sinus tachycardia Nonspecific intraventricular conduction delay Missing lead(s): V6 Confirmed by Hemal Ash ([id number]) on 10/18/2018 4:02:08 PM Referred By: George Wynn Confirmed By:Hemal Ash
--- NOTE | 2018-10-18 16:08 | PDMN ---
Medical Necessity Medical necessity: [facility] M595 Substance Related D/O, 2 days: 53 yo acute abd pain thought to be gastroenteritis and acute encephalopathy - infectious vs. metabolic v. polypharmacy. Initially OBS for workup/tx but pt became tachycardic, persistent, w/ persistent tachypnea. Developed HTN emergency w/ acute ischemia, elevated troponins and abd EKG, cardio consult. +UTI. Suspect ETOH abuse and going through ETOH w/d. CIWA protocol. IVF, IV antibx, IV Ativan. Given multiple medical issues and deteriorating condition through OBS period, pt changed to IP status as pt requires additional MN for ongoing monitoring and tx of the above. Change to IP status 10/18/18@1540 per
[2018-10-18 16:23] LABS: CREATINE KINASE 456 IU/L (0-156)
--- NOTE | 2018-10-18 16:29 | GCON ---
[f rep st] CONSULTATION PULMONARY/CRITICAL CARE CONSULTATION DATE OF CONSULTATION: 10/18/2018 REFERRING PROVIDER: Clemente Davis MD REASON FOR REFERRAL: Evaluation and management of delirium and hypertension. HISTORY: The patient is a 53-year-old woman with a past medical history of hypertension, hyperlipide darline, osteoarthritis, psoriatic arthritis, and bipolar depression, who presented last night with compl aints of diffuse abdominal pain/cramping, along with vomiting and diarrhea. There was a question abo ut whether the patient was compliant with her clonidine medication, possibly over and under dosing. She has apparently been drinking alcohol fairly heavily intermittently. She was admitted and was fou nd to have an elevated troponin and abnormal ECG, in addition to severe hypertension. PAST MEDICAL HISTORY: Hypertension, anxiety/depression with bipolar disorder, psoriasis previously o n Humira, GERD. MEDICATIONS: Atorvastatin, Neurontin, clonidine p.o., and Paxil. ALLERGIES: Aspirin. SOCIAL HISTORY: The patient is a current smoker and apparently drinks excessively at least intermitt ently, if not regularly. She lives with her daughter. FAMILY HISTORY: Unremarkable. REVIEW OF SYSTEMS: Unobtainable. PHYSICAL EXAMINATION: GENERAL: The patient is somnolent. She is arousable, but does not answer que stions. VITAL SIGNS: Blood pressure is 150/129, with a heart rate of 94. She is afebrile. Oxygen saturations are 100% on 2 L. HEENT: Normocephalic and atraumatic. No icterus. NECK: No adenopath y. Trachea is midline. CHEST: Regular rate and rhythm without murmur. ABDOMEN: Soft, nontender. Bowel sounds are present. EXTREMITIES: No clubbing, cyanosis, or edema. NEURO: The patient is so mnolent, but does arouse. She does not answer any questions. She is able to move all extremities. LABORATORY: White blood count is 21.5, up from 20.6 at admission. Hemoglobin is 13.0. Sodium is 14 8, creatinine 0.7. Troponin is 0.42, up from 0.09. TSH is 0.358. A lactate is 2. Urinalysis shows 15 to 25 white blood cells. Toxicology screen is positive for marijuana and negative for alcohol. A CT scan of the abdomen is suggestive of mild gastroenteritis. There is a moderate hiatal hernia. The visualized portions of the lungs are unremarkable. An electrocardiogram demonstrates minimal ST-segment in the inferior lateral leads. ASSESSMENT: 1. Abdominal pain. This may be due to gastroenteritis. Also could be a symptom of alcohol withdraw al. 2. Possible urinary tract infection. 3. Mildly elevated troponins. They could be due to her severe hypertension. 4. Hypertension. This could be due to alcohol withdrawal and/or not taking her clonidine medication . 5. History of nausea and vomiting. She has not had any nausea and vomiting since admission. RECOMMENDATIONS: 1. Cardizem for blood pressure control. 2. [facility] protocol for likely component of alcohol withdrawal. 3. Ceftriaxone for probable urinary tract infection. 4. Pantoprazole for gastritis. /[id number]/MODL
[2018-10-18] MEDS ORDERED: hydrALAZINE 20 MG/ML VIAL IVP PRN (17:52)
[2018-10-18] MEDS ORDERED: HYOSCYAMINE SULFATE 0.125 MG TAB PO PRN (18:41)
[2018-10-18] MEDS: HEPARIN/DEXTROSE 500 ML IV SCH (19:00)
[2018-10-18] MEDS: PANTOPRAZOLE SODIUM 40 MG VIAL IVP SCH (20:13)
[2018-10-18] MEDS: MAG HYDROX/AL HYDROX/SIMETH 30 ML UDCUP PO PRN (23:28)
[2018-10-18] MEDS: LIDOCAINE 2% VISCOUS 15 ML UDCUP PO PRN (23:28)
[2018-10-19] MEDS: NS 1,000 ML IV SCH (03:00)
[2018-10-19] MEDS: DILTIAZEM HCL/D5W 125 ML IV SCH ×3 (03:30→21:28)
[2018-10-19 05:23] LABS: PLATELET COUNT 332 10^3/uL (150-400)
[2018-10-19] MEDS: LORazepam 2 MG/ML INJ IVP PRN (05:23)
[2018-10-19] MEDS: NITROGLYCERIN 2% 1 GM PACKET TP SCH ×3 (05:25→17:35)
[2018-10-19] MEDS: POTASSIUM Cl (KCl) 100 ML IV SCH ×4 (07:28→10:59)
[2018-10-19] MEDS: ATORVASTATIN CALCIUM 40 MG TAB PO SCH (07:49)
[2018-10-19] MEDS: PANTOPRAZOLE SODIUM 40 MG VIAL IVP SCH ×2 (08:25→20:15)
[2018-10-19] MEDS: HEPARIN/DEXTROSE 500 ML IV SCH ×2 (10:00→10:09)
[2018-10-19] MEDS: NS W/ 20 KCl/L 1,000 ML IV SCH (11:16)
[2018-10-19] MEDS: THIAMINE HCL 500 MG in NS 100 ML IV SCH (11:56)
[2018-10-19] MEDS ORDERED: PROTOCOL POTASSIUM 1 DOSE MISC PRN (12:20)
--- NOTE | 2018-10-19 12:21 | HOSPPROG ---
Hospitalist Progress Note Assessment/Plan: 53yo F with history of alcohol abuse, htn presented w/abdominal pain found to have severe hypertension, elevated troponin, UTI. Course complicated by encephalopathy. #Acute metabolic encephalopathy: Likely 2/2 etoh w/d, infection. Less likely PRES. She does not have decision making capacity at present. #Hypertensive crisis: BP goal 140-160 - Continue dilt gtt, nitro paste. PO meds once able to tolerate - Stopped home clonidine #EtOH abuse with concern for withdrawal - Continue CIWA protocol #Elevated troponin: C/w demand from htn. TTE without WMA. Cath 2017 clean. - Cards consulted, no indication for cath - Continue heparin gtt for now, likely dc after 48 hours (tomorrow) #UTI: Culture growing GNR - Continue ceftriaxone #Abdominal pain: Benign abdomen. CT with ? gastroenteritis. Supportive care. #Prolonged QTc: 580s. Avoiding qt prolonging agents. #H/o psoriasis: Previously on humira but not currently. #Leukocytosis: Quite elevated. Likely r/t infection. Monitor. VTE ppx: therapeutic anticoagulation Code: full Diet: npo Dispo: Remain inpatient in ICU Subjective: Confused but not significantly agitated. Not able to take PO per RN. She answers "yes" to all of my questions. Objective: Vital Signs Temp Pulse Resp BP Pulse Ox 37.1 C 98 29 H 132/96 H 97 10/19/18 12:00 10/19/18 12:00 10/19/18 12:00 10/19/18 12:00 10/19/18 12:00 Laboratory Results 10/19/18 04:50 10/19/18 04:50 10/18/18 10/19/18 10/20/18 05:59 05:59 05:59 Intake Total 2659 Output Total 3100 675 Balance -441 -675 PT REJ 10/18/18 09:30 INR TNP 10/18/18 09:30 - Physical Exam Constitutional: chronically ill appearing, unkempt Eyes: PERRL, anicteric sclera, EOMI Ears, Nose, Mouth, Throat: dry mucous membranes Cardiovascular: regular rate and rhythym, no murmur, rub, or gallop, No edema Respiratory: no respiratory distress, no rales or rhonchi, clear to auscultation Gastrointestinal: normoactive bowel sounds, soft, non-tender abdomen, no palpable masses Genitourinary: no bladder fullness, no bladder tenderness, no renal bruits Skin: no rashes or abrasions, no fluctuance, no induration Musculoskeletal: other (no hand tremor or tongue fasciculations) Neurologic: other (alert, not oriented) Psychiatric: encephalopathic ICD10 Worksheet Patient Problems: Problems Problem Status Onset Abdominal pain Acute Acute gastroenteritis Acute Altered mental status Acute Hypertension Acute Acute pyelonephritis Acute Anxiety reaction Acute Chest discomfort Acute History of coronary artery disease Acute Hypernatremia Acute Sepsis Acute Vomiting and diarrhea Acute
--- NOTE | 2018-10-19 13:56 | PDINTPN ---
Circulation Sales Representative Progress Note Assessment/Plan: Assessment: Delirium/AMS: Persistent. Patient calm. Likely multifactorial. Alcohol withdrawal may be playing a significant role. Ingested non drugs or substances could be playing a role despite negative tox screen on admission? History of alcohol abuse. Unclear how much she was drinking pre hospitalization. On CIWA protocol. Hypertension: Blood pressure is elevated on admission. Better now with medications for control. Can possibly stop IV diltiazem tomorrow History of coronary artery disease. Troponin peaked at 0.44. Coming down now: Possibly secondary to acute hypertension. No evidence of acute ischemic disease. Urinary tract infection: Lactose fermenting gram-negative rebecca growing. Leukocytosis. On ceftriaxone. Nausea and vomiting: Resolved. Probably secondary to gastroenteritis. On pantoprazole. DVT prophylaxis: On full-dose heparin drip secondary to acute cardiac concerns. Probably can stop this. Will discuss with Cardiology. Plan: Continue present care in observation in the intensive care unit. Continue CIWA protocol, realizing this is somewhat difficult to assess secondary to lethargy and inability to answer questions. Continue ceftriaxone. Follow laboratory. Cardiology consultation appreciated. Will discuss stopping full-dose anticoagulation, diltiazem drip. Follow laboratory, mental status. 35 min of critical care time spent directly with the patient. Discussed with hospitalist, Cardiology, nursing, and the ICU multi disciplinary team. Subjective: Somnolent, arousable. Denies pain or shortness of breath. Indicates she is comfortable. Objective: Vital Signs Temp Pulse Resp BP Pulse Ox 37.1 C 100 29 H 132/96 H 97 10/19/18 12:00 10/19/18 12:51 10/19/18 12:00 10/19/18 12:00 10/19/18 12:00 Laboratory Results 10/19/18 04:50 10/19/18 04:50 10/18/18 10/19/18 10/20/18 05:59 05:59 05:59 Intake Total 2659 Output Total 3100 675 Balance -441 -675 PT REJ 10/18/18 09:30 INR TNP 10/18/18 09:30 Laboratory Tests 10/19/18 10/19/18 10/19/18 04:50 04:50 04:50 Heparin Anti-Xa, Unfract Calcium 8.7 Magnesium 2.2 Total Bilirubin 0.5 AST 33 ALT 32 Ammonia 24.0 Troponin I 0.211 H Albumin 4.1 10/19/18 07:05 Heparin Anti-Xa, Unfract 0.69 H Calcium Magnesium Total Bilirubin AST ALT Ammonia Troponin I Albumin Physical Exam - Physical Exam General Appearance: no apparent distress, other (Somnolent, arousable and responsive), No alert EENT: PERRL/EOMI, other (On room air) Neck: normal inspection (No JVD) Respiratory: lungs clear, decreased breath sounds (At bases), No respiratory distress, No rales, No rhonchi Cardiac/Chest: regular rate, rhythm, No gallop Abdomen: non-tender, soft, No normal bowel sounds (Decreased, present) Pelvic Exam: other (Catheter in place. Good urine output) Skin: normal color, warm/dry Extremities: No pedal edema Neuro/Psych: no motor/sensory deficits (Moves all extremities to command), cognition abnormalities (Oriented to person only. Knows she is in the hospital but [facility]) ICD10 Worksheet Patient Problems: Problems Problem Status Onset Abdominal pain Acute Acute gastroenteritis Acute Altered mental status Acute Hypertension Acute Acute pyelonephritis Acute Anxiety reaction Acute Chest discomfort Acute History of coronary artery disease Acute Hypernatremia Acute Sepsis Acute Vomiting and diarrhea Acute
--- NOTE | 2018-10-19 16:06 | ASMTCMCOM ---
CM Note CM Note Notes: Spoke with patient's daughter regarding her mother being non decisional at the current time (Dr. Nilton Mazariegos). [employer] ([phone]), patient's daughter states she does have a younger brother, Miah but he would agree she is the person to serve as the proxy. Miah does not currently have a phone but can be contacted through [employer]. Ann is working [employer] but plans to come by at 9:00 am to sign the proxy paperwork. If something comes up overnight, Ann will be available by phone. CM following. Date Signed: 10/19/2018 04:05 PM Electronically Signed By:Darby Foss LCSW
[2018-10-19] MEDS: POTASSIUM Cl (KCl) 50 ML IV SCH ×3 (18:36→20:56)
[2018-10-20] MEDS: NITROGLYCERIN 2% 1 GM PACKET TP SCH ×4 (00:37→17:45)
[2018-10-20 04:29] LABS: PLATELET COUNT 322 10^3/uL (150-400)
[2018-10-20] MEDS: NS W/ 20 KCl/L 1,000 ML IV SCH (05:32)
[2018-10-20] MEDS: DILTIAZEM HCL/D5W 125 ML IV SCH (07:05)
[2018-10-20] MEDS ORDERED: POTASSIUM Cl (KCl) 50 ML IV ONE (08:06)
[2018-10-20] MEDS: ATORVASTATIN CALCIUM 40 MG TAB PO SCH (08:26)
[2018-10-20] MEDS: PANTOPRAZOLE SODIUM 40 MG VIAL IVP SCH (08:26)
[2018-10-20] MEDS: THIAMINE HCL 500 MG in NS 100 ML IV SCH (08:27)
[2018-10-20] MEDS: LIDOCAINE 2% VISCOUS 15 ML UDCUP PO PRN ×2 (09:34→20:11)
[2018-10-20] MEDS: MAG HYDROX/AL HYDROX/SIMETH 30 ML UDCUP PO PRN ×2 (09:34→20:11)
--- NOTE | 2018-10-20 09:38 | ASMTCMCOM ---
CM Note CM Note Notes: Pt's daughter came in today to sign Health Care Proxy form. She said she is available by phone if anyone needs her. CM answered questions and concerns. PT/OT evals are pending. CM spoke with RN today and pt is more alert and oriented compared to yesterday but is still not decisional, per Dr. Mazariegos. Pt continue to follow. Plan: 1. Complete CAGE once able. 2. Dispo plan TBD Date Signed: 10/20/2018 09:37 AM Electronically Signed By:LORNA Reyez
[2018-10-20] MEDS ORDERED: LORazepam 2 MG/ML INJ IV ONE (09:45)
[2018-10-20] MEDS: ENOXAPARIN 40 MG/0.4 ML SYR SC SCH (11:15)
--- NOTE | 2018-10-20 11:26 | HOSPPROG ---
Hospitalist Progress Note Assessment/Plan: 53yo F with history of alcohol abuse, htn presented w/abdominal pain found to have severe hypertension, elevated troponin, UTI. Course complicated by encephalopathy. #Acute metabolic encephalopathy: Improving but not resolved. Likely 2/2 etoh w/d , infection. #Hypertensive crisis: BP goal <140 - Now tolerating PO, will stop dilt gtt - Start amlodipine 10mg daily, continue nitro paste through end of day - Stopped home clonidine #EtOH abuse and withdrawal: No longer withdrawing - Stop CIWA #Elevated troponin: C/w demand from htn. TTE without WMA. Cath 2017 clean. - Cards consulted, no indication for cath - Stopping heparin gtt (on for 48 hours) #UTI: Culture growing GNR - Continue ceftriaxone through 10/22 for 5 day course #Abdominal pain: Benign abdomen. CT with ? gastroenteritis. Supportive care. #Prolonged QTc: 580s. Avoiding qt prolonging agents. Ativan prn for nausea. #H/o psoriasis: Previously on humira but not currently. #Leukocytosis: Likely r/t infection, improving. Monitor. VTE ppx: LMWH Code: full Diet: Dispo: Remain inpatient, transfer to SDU vs floor this afternoon Subjective: Doing much better today. Some mid-abdominal pain and nausea this AM. Objective: Vital Signs Temp Pulse Resp BP Pulse Ox 36.4 C 88 25 H 151/98 H 97 10/20/18 04:00 10/20/18 10:00 10/20/18 10:00 10/20/18 10:00 10/20/18 10:00 Laboratory Results 10/20/18 04:05 10/20/18 04:05 10/19/18 10/20/18 10/21/18 05:59 05:59 05:59 Intake Total 2659 2695 Output Total 3100 1950 350 Balance -441 745 -350 PT REJ 10/18/18 09:30 INR TNP 10/18/18 09:30 - Physical Exam Constitutional: no apparent distress, unkempt Eyes: PERRL, anicteric sclera, EOMI Ears, Nose, Mouth, Throat: moist mucous membranes, hearing normal, ears appear normal, no oral mucosal ulcers Cardiovascular: regular rate and rhythym, no murmur, rub, or gallop, No edema Respiratory: no respiratory distress, no rales or rhonchi, clear to auscultation Gastrointestinal: normoactive bowel sounds, soft, non-tender abdomen, no palpable masses, No distension Genitourinary: no bladder fullness, no bladder tenderness, no renal bruits Skin: no rashes or abrasions, no fluctuance, no induration Musculoskeletal: full muscle strength, no muscle tenderness, normal joint ROM Neurologic: CN II-XII Intact, other (alert, oriented to person and place but not time), No weakness Psychiatric: encephalopathic ICD10 Worksheet Patient Problems: Problems Problem Status Onset Abdominal pain Acute Acute gastroenteritis Acute Altered mental status Acute Hypertension Acute Acute pyelonephritis Acute Anxiety reaction Acute Chest discomfort Acute History of coronary artery disease Acute Hypernatremia Acute Sepsis Acute Vomiting and diarrhea Acute
[2018-10-20] MEDS: amLODIPine BESYLATE 5 MG TAB PO SCH (12:17)
--- NOTE | 2018-10-20 13:14 | CPEKG ---
Test Reason : OPEN Blood Pressure : / mmHG Vent. Rate : 094 BPM Atrial Rate : 094 BPM P-R Int : 093 ms QRS Dur : 084 ms QT Int : 470 ms P-R-T Axes : 076 097 038 degrees QTc Int : 588 ms Sinus rhythm Short NC interval Borderline right axis deviation Prolonged QT interval Confirmed by Samuel Hayward ([id number]) on 10/20/2018 1:14:06 PM Referred By: George Wynn Confirmed By:Samuel Hayward
[2018-10-20] MEDS ORDERED: LORazepam 1 MG TAB PO PRN (13:16)
--- NOTE | 2018-10-20 13:17 | PDINTPN ---
[employer] Progress Note Assessment/Plan: Assessment: Delirium/AMS: Resolved, likely secondary to alcohol, alcohol withdrawal, possibly infection. Denies taking any other medications, drugs, substances. History of alcohol abuse. On [facility] protocol, consist opt this.. Hypertension: Blood pressure is elevated on admission. Better now with medications for control. Can stop IV diltiazem. History of coronary artery disease. Troponin peaked at 0.44. Coming down now: Probable secondary to acute hypertension. No evidence of acute ischemic disease. Cardiology saw patient, has signed off. Urinary tract infection: E coli, multiply sensitive. On ceftriaxone. Can change to oral antibiotics. Leukocytosis improving. Nausea and vomiting: Resolved. Probably secondary to gastroenteritis. Still with mild abdominal pain. On pantoprazole. DVT prophylaxis: Can stop full-dose heparin, started prophylactic enoxaparin. Plan: Continue care. Can transfer to a medical-surgical bed. D/C CIOH protocol. Can continue Ativan if needed for anxiety. D/C ceftriaxone, start Bactrim. Follow laboratory. Cardiology consultation appreciated. 25 min of critical care time spent directly with the patient. Discussed with hospitalist, Cardiology, nursing, and the ICU multi disciplinary team. Subjective: Feels much better. Oriented today, no longer lethargic or confused. Still tired. Objective: Vital Signs Temp Pulse Resp BP Pulse Ox 36.4 C 95 26 H 156/93 H 97 10/20/18 04:00 10/20/18 12:00 10/20/18 12:00 10/20/18 12:00 10/20/18 12:00 Laboratory Results 10/20/18 04:05 10/20/18 04:05 10/19/18 10/20/18 10/21/18 05:59 05:59 05:59 Intake Total 2659 2695 Output Total 3100 1950 350 Balance -441 745 -350 PT REJ 10/18/18 09:30 INR TNP 10/18/18 09:30 Laboratory Tests 10/20/18 10/20/18 04:05 04:05 Heparin Anti-Xa, Unfract 0.47 Calcium 9.0 Total Bilirubin 0.6 AST 23 ALT 31 Alkaline Phosphatase 125 Physical Exam - Physical Exam General Appearance: no apparent distress, other (Sleeping, arousable, responsive ) EENT: PERRL/EOMI, other (On room air) Neck: normal inspection (No JVD) Respiratory: lungs clear, decreased breath sounds (At bases), No rhonchi Cardiac/Chest: regular rate, rhythm, No gallop Abdomen: normal bowel sounds, non-tender, soft Pelvic Exam: other (Nicholas out) Skin: normal color, warm/dry Extremities: No pedal edema Neuro/Psych: no motor/sensory deficits, No cognition abnormalities ICD10 Worksheet Patient Problems: Problems Problem Status Onset Acute pyelonephritis Acute Sepsis Acute Hypernatremia Acute Vomiting and diarrhea Acute Chest discomfort Acute History of coronary artery disease Acute Anxiety reaction Acute Altered mental status Acute Abdominal pain Acute Acute gastroenteritis Acute Hypertension Acute
[2018-10-20] MEDS ORDERED: ONDANSETRON 4 MG/2 ML VIAL IVP ONE (17:00)
[2018-10-20] MEDS: PANTOPRAZOLE SODIUM 40 MG TAB PO SCH (20:14)
[2018-10-20] MEDS: SULFAMETHOX/TMP 800/160 MG 1 TAB PO SCH (20:14)
--- NOTE | 2018-10-20 23:06 | PDCARPN ---
Cardiology Progress Note Chief Complaint: Abdominal pain Assessment/Plan: Assessment:1. Abnormal EKG/ Elevated troponin. The patient most likely has/had demand ischemia secondary to profound hypertension and alcohol withdrawal the troponin has trended down and the EKG is negative for injury pattern and most consistent with a strain pattern. She denies chest discomfort and her current abdominal pain is most likely secondary to gastroenteritis noted on Ct. She also had GNR that has not yet been identified but is growing in culture. The patient has had a cath in 2017 that was negative for flow limiting obstruction. I think it is unlikely that she would have had progression of CAD in this short of a time frame especially when considering the findings above. We will sign off for now please reconsult if needed. Plan: Oral meds to achieve blood pressure control, alcohol cessation to reduce large swings in blood pressure. 10/20/18 22:59 Reviewed/Discussed With: multidisciplinary team Objective: Vital Signs (8 Hrs) Temp Pulse Resp BP Pulse Ox 10/20/18 19:17 98 16 97 10/20/18 16:00 37.2 C 85 16 149/71 H 97 Intake/Output (24 Hrs) 10/19/18 10/20/18 10/21/18 05:59 05:59 05:59 Intake Total 2659 2695 970 Output Total 3100 1950 1050 Balance -441 745 -80 Intake: Oral (ml) 850 IV Intake (ml) 120 IV Infused (ml) 2659 2695 Diltiazem HCl/D5w 125 ml 243 182 @ Per Protocol IV CONT DUYEN Rx#:[id number] Diltiazem HCl/D5w 125 ml 153 @ Titrate IV CONT DUYEN Rx# :[id number] Heparin/Dextrose 500 ml @ 416 449 Per Protocol IV CONT DUYEN Rx#:[id number] NS W/ 20 KCl/L 1,000 ml @ 659 75 mls/hr IV CONT DUYEN Rx #:[id number] Ns 1,000 ml @ 75 mls/hr 1950 1052 IV CONT DUYEN Rx#: [id number] POTASSIUM Cl (KCl) 50 ml 150 @ 50 mls/hr IV Q1H DUYEN Rx #:[id number] cefTRIAXone 1 GM/DEXTROSE 50 50 50 ml @ 100 mls/hr IV DAILY@2100 DUYEN Rx#: [id number] Output: Urine (ml) 3100 1950 1050 Bedside Commode 500 Catheter 3100 1950 350 Toilet 200 Other: Weight 67.9 kg Number of Stools Catheter 0 Result Diagrams: 10/20/18 04:05 10/20/18 17:00 Cardiac Labs: Cardiac Lab Results (72 Hrs) 10/19/18 10/18/18 04:50 16:00 CK-MB (CK-2) Fraction 3.48 Troponin I 0.211 H 0.446 H EKG: sinus rhythm rightward axis prolonged QT for rate. no definite ischemia or injury pattern - Physical Exam Constitutional: other (complains of abdominal pain) Eyes: PERRL, anicteric sclera Ears, Nose, Mouth, Throat: moist mucous membranes Cardiovascular: regular rate and rhythm Respiratory: clear to auscultate bilat Gastrointestinal: normoactive bowel sounds, tenderness Psychiatric: cooperative, following commands - . Pending Discharge Within 24 Hours: No Pending Discharge Within 48 Hours: No ICD10 Worksheet Patient Problems: Problems Problem Status Onset Acute pyelonephritis Acute Sepsis Acute Hypernatremia Acute Vomiting and diarrhea Acute Chest discomfort Acute History of coronary artery disease Acute Anxiety reaction Acute Altered mental status Acute Abdominal pain Acute Acute gastroenteritis Acute Hypertension Acute
[2018-10-21] MEDS: SULFAMETHOX/TMP 800/160 MG 1 TAB PO SCH (07:15)
[2018-10-21] MEDS: amLODIPine BESYLATE 5 MG TAB PO SCH (07:16)
[2018-10-21] MEDS: ATORVASTATIN CALCIUM 40 MG TAB PO SCH (07:16)
[2018-10-21] MEDS: PANTOPRAZOLE SODIUM 40 MG TAB PO SCH (07:16)
[2018-10-21] MEDS: ENOXAPARIN 40 MG/0.4 ML SYR SC SCH (07:19)
[2018-10-21 07:36] VITALS: BP 124/81
[2018-10-21] MEDS ORDERED: POTASSIUM CL 10 MEQ TAB PO ONE (07:42)
[2018-10-21] MEDS ORDERED: THIAMINE HCL 100 MG TAB PO SCH (09:00)
--- NOTE | 2018-10-21 12:51 | HOSPPROG ---
Hospitalist Progress Note Assessment/Plan: 53yo F with history of alcohol abuse, htn presented w/abdominal pain found to have severe hypertension, elevated troponin, UTI. Course complicated by encephalopathy. #Acute metabolic encephalopathy: Resolved. Likely 2/2 etoh w/d, infection. #Hypertensive crisis: Resolved. BP goal <140. Dc'd clonidine. Started amlodipine 5mg daily. #EtOH abuse and withdrawal: No longer withdrawing. Stopped CIWA. #Elevated troponin: C/w demand from htn. TTE without WMA. Cath 2017 clean. Cards consulted, no cath. S/p 48hrs hep gtt. #E coli UTI: Continue bactrim, today day 4/5. #Abdominal pain: Benign abdomen. Improving. CT with ? gastroenteritis. Supportive care. #Prolonged QTc: 580s. Avoiding qt prolonging agents. Ativan prn for nausea. #H/o psoriasis: Previously on humira but not currently. #Leukocytosis: Likely r/t infection, improving. Monitor. VTE ppx: LMWH Code: full Diet: Dispo: ok to discharge today Subjective: Doing very well today. Wants to go home. Took shower, ate meal. Abdominal pain slightly better, no vomiting today. Objective: Vital Signs Temp Pulse Resp BP Pulse Ox 36.4 C 82 19 124/81 H 96 10/21/18 07:34 10/21/18 07:34 10/21/18 07:34 10/21/18 07:34 10/21/18 07:34 Laboratory Results 10/20/18 04:05 10/21/18 05:10 10/20/18 10/21/18 10/22/18 05:59 05:59 05:59 Intake Total 2695 970 Output Total 1950 1250 100 Balance 745 -280 -100 PT REJ 10/18/18 09:30 INR TNP 10/18/18 09:30 - Physical Exam Constitutional: no apparent distress Eyes: PERRL, anicteric sclera, EOMI Ears, Nose, Mouth, Throat: moist mucous membranes, hearing normal, ears appear normal, no oral mucosal ulcers Cardiovascular: regular rate and rhythym, no murmur, rub, or gallop Respiratory: no respiratory distress, no rales or rhonchi, clear to auscultation Gastrointestinal: normoactive bowel sounds, soft, non-tender abdomen, no palpable masses Genitourinary: no bladder fullness, no bladder tenderness, no renal bruits Skin: no rashes or abrasions, no fluctuance, no induration Musculoskeletal: full muscle strength, no muscle tenderness, normal joint ROM Neurologic: AAOx3 Psychiatric: interacting appropriately ICD10 Worksheet Patient Problems: Problems Problem Status Onset Abdominal pain Acute Acute gastroenteritis Acute Altered mental status Acute Hypertension Acute Acute pyelonephritis Acute Anxiety reaction Acute Chest discomfort Acute History of coronary artery disease Acute Hypernatremia Acute Sepsis Acute Vomiting and diarrhea Acute
--- NOTE | 2018-10-21 13:19 | PDDCSUM ---
Discharge Summary Discharge Summary: Date of Admission: 10/17/2018 Date of Discharge: 10/21/2018 Consultants: cardiology, cad designer Studies: abdominal CT, TTE Procedures: PICC line placement, now removed Discharge Diagnoses: 1. Acute toxic/metabolic encephalopathy 2. Hypertensive crisis 3. Elevated troponin 4. EtOH abuse and withdrawal 5. E coli UTI 6. Abdominal pain 2/2 mild gastroenteritis 7. Prolonged QTc interval 8. H/o psoriasis previously on humira 9. Leukocytosis Brief Hospital Course: 53yo F with history of alcohol abuse, htn presented with abdominal pain, nausea and vomiting. She was found to be encephalopathic and have severely elevated blood pressure (237/113!). She had an abnormal ECG and elevated troponin that peaked at 0.446; she did not have any anginal symptoms. Cardiology was consulted who felt that these findings were due to demand ischemia secondary to profound hypertension. She had a coronary angiogram in 2017 that was negative for flow limiting obstruction; cardiology did not think that a repeat angiogram was necessary. Her encephalopathy was attributed to her hypertension, alcohol withdrawal, and UTI. Her BP was initially controlled with diltiazem drip and nitro paste as she was unable to take PO meds. She was transitioned to amlodipine at time of discharge. She was maintained on the CIWA protocol and did well with this. She was also treated for E coli UTI with ceftriaxone and discharged on bactrim. Her mental status improved back to baseline. Lastly, a CT of her abdomen on admission showed mild gastroenteritis - she was tolerating PO at time of discharge. Medications: Please refer to EMR for complete list. 1. Discontinued clonidine. 2. Started amlodipine 5mg daily. 3. Started bactrim DS 1 tab for 3 more doses. Follow Up Plan: 1. Strongly encouraged alcohol cessation. 2. PCP visit next week to monitor blood pressure, ensure resolution of UTI. Consider outpatient cardiac stress test. Physical Exam: Vitals reviewed, afebrile and normotensive. Alert and oriented. No hand tremor or tongue fasciculations. RRR, lungs clear, abdomen soft and nontender, no leg edema.
--- NOTE | 2018-10-21 13:56 | ASDISCHSUM ---
Discharge Information Plan Status:Home with No Needs Medically Cleared to Leave:10/21/2018 Discharge Date:10/21/2018 CM D/C Disposition:Home, Routine, Self-Care ADT D/C Disposition:Home, Routine, Self-Care Projected Discharge Date:10/21/2018 12:00 AM Transportation at D/C:Family Discharge Delay Reason: Follow-Up Date:10/21/2018 12:00 AM Discharge Slot:2 - 12:01 pm - 18:00 pm Final Diagnosis:Acute pyelonephritis Placement Information Patient Contact Information Contact Name:ROSELIA Relationship:Friend Address:[address] [place] [address] Work Phone: [facility] Alternate Phone: [facility]/Zip Code:[place] [address] Email: Financial Information Financial Class:Medicaid Primary Plan Desc:[facility] Primary Plan Number:[id number] Secondary Plan Desc: Secondary Plan Number: Assessment Information [facility] CM Progress Note CM Note CM Note Notes: CM spoke with RN as pt is still encephalopathic. Pt admitted for nausea, vomit and abd pain with agitation, AMS and HTN crisis. Hospitalist suspect ETOH abuse and withdrawal despite negative tox screen. Dtr. Ann ([phone]) brought pt in and denies pt drinks daily though concedes pt had been drinking day of admit. CM left message for Ann. Pt has history of Bipolar, anxiety, Psoriotic arthritis for which she was previously on Humira. No therapies ordered yet as pt is not able to participate yet. D/C date and plan TBD. CM to follow. D/C Plan: TBD Date Signed: 10/18/2018 02:09 PM Electronically Signed By:Kristina Bustillo LACE SHOAIB Length of stay for Answers: 3 days current admission Acuity / Level of Answers: Yes Care: Did the patient have an inpatient admission? 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 Nilton Mazariegos). Caro ([phone]), patient's daughter states she does have a younger brother, Miah but he would agree she is the person to serve as the proxy. Miah does not currently have a phone but can be contacted through [employer]. Ann is working [employer] but plans to come by at 9:00 am to sign the proxy paperwork. If something comes up overnight, Ann will be available by phone. CM following. Date Signed: 10/19/2018 04:05 PM Electronically Signed By:Darby Foss LCSW [facility] CM Progress Note CM Note CM Note Notes: Pt's daughter came in today to sign Health Care Proxy form. She said she is available by phone if anyone needs her. CM answered questions and concerns. PT/OT evals are pending. CM spoke with RN today and pt is more alert and oriented compared to yesterday but is still not decisional, per Dr. Mazariegos. Pt continue to follow. Plan: 1. Complete CAGE once able. 2. Dispo plan TBD Date Signed: 10/20/2018 09:37 AM Electronically Signed By:LORNA Reyez Case Management Discharge Plan Note Case Management Discharge Discharge Order Complete? Answers: Yes Patient to Obtain Answers: Independently Medications Transportation Arranged Answers: Family/Friends Transport will Pick (Date 10/21/2018 12:00 AM & Time) Family Notified Answers: Yes Notes: daughterCaro Discharge Comments Notes: PT states patient is clear to discharge home.Patient's daughter was notified and either she or patient's friend will transport her home. No further needs. Date Signed: 10/21/2018 01:55 PM Electronically Signed By:Darby Foss LCSW Intervention Information
== END 2018-10-21 15:11 | disposition home or self-care (01) | DRG 199 ==
LOC: CED 17:47 → CEDHOLD 20:21 → F2N 22:03 → OBSVTOIN 10-18 15:40
PROVIDERS: ADMIT Internal Medicine; ATTEND Internal Medicine
PROC: 02HV33Z Insertion of Infusion Device into Superior Vena Cava, Percutaneous Approach (ICD-10-PCS; principal; 2018-10-18)
DX: I16.9 Hypertensive crisis, unspecified (principal); G93.41 Metabolic encephalopathy; K52.9 Noninfective gastroenteritis and colitis, unspecified; F10.239 Alcohol dependence with withdrawal, unspecified; N39.0 Urinary tract infection, site not specified; B96.20 Unspecified Escherichia coli [E. coli] as the cause of diseases classified elsewhere; I45.81 Long QT syndrome; F31.9 Bipolar disorder, unspecified; I25.10 Atherosclerotic heart disease of native coronary artery without angina pectoris; E78.00 Pure hypercholesterolemia, unspecified; L40.9 Psoriasis, unspecified; F17.210 Nicotine dependence, cigarettes, uncomplicated; I25.2 Old myocardial infarction
CPT/HCPCS: 74177-PO; 80053-ER; 84481-90; 85025-QW-ER; 85520-90; 96361-ER; 96374-ER; 96375-ER; 97116-GP; 97161-GP; 97166-GO; 99291-ER; C1751; G0378; G0480; J0360; J0696; J1170; J1200; J1630; J1644; J1650; J1885; J2060; J2405; J3411; J3480; Q9967